=== PATIENT | female | born 1965 | race Two or more races ===

== ENCOUNTER 2019-02-19 18:14 | Inpatient (IN) | payer OTHER, MEDICAID ==
[~2019-02-19] VITALS: Ht 162.6 cm; Wt 106.1 kg
--- NOTE | 2019-02-19 10:30 | NUR ---
MS admit from [facility] A admitted to MS after SBAR received. Patient oriented to ROSA RAMIREZ RN primary RN, unit,286 room, bed B, and unit policies regarding patient care and visiting hours. Patient weighed by bed scale and encouraged to call if they need something. All questions and concerns addressed, patient verbalized understanding. Note: Patient received with increased anxiety. Patient noted with excessive voluntary movements. Resp even and unlabored. Breath sounds clear bilaterally. Non- productive, 02 at 2l/min via N/C. SP02@ 92-93. She denies pain at this time. Will continue to monitor. Bed in low position; Call light in reach. Patient is ambulates to bathroom with a slow steady gait.
[2019-02-19 19:29] LABS: Basophils # (auto) 0.1 uL; Basophils % (auto) 0.7 % (0.0-2.0); Eosinophils # (auto) 0.1 uL; Eosinophils % (auto) 1.4 % (0.0-7.0); Mean Corpuscular Volume 84.3 fL (80.0-100.0); Monocytes # (auto) 0.4 uL; Neutrophils # (auto) 7.2 uL; White Blood Cell 8.9 10^3/uL (4.4-10.8)
[2019-02-19 19:30] LABS: Lymphocytes % (auto) 11.3 % (10.0-50.0); Mean Corpuscular Hemoglobin 27.2 pg (28.0-32.0); Mean Corpuscular Hgb Conc. 32.2 g/dL (32.0-36.0); Neutrophils % (auto) 81.6 % (37.0-80.0); Platelet Count (auto) 445 10^3/uL (140-450); Red Blood Cells 3.68 10^6/uL (4.0-5.20); Red Cell Distribution Width 15.3 % (11.8-14.3)
[2019-02-19] MEDS ORDERED: ASPirin 81 mg TAB PO ONE (19:30)
[2019-02-19 19:42] LABS: Alanine Aminotransferase 21 U/L (13-56); Albumin 3.1 g/dL (3.4-5.0); Anion Gap 9 (5-15); Aspartate Aminotransferase 11 U/L (15-37); BUN/Creatinine Ratio 10.9; Blood Urea Nitrogen 10 mg/dL (7-18); Calcium 8.8 mg/dL (8.5-10.1); Carbon Dioxide 23 mmol/L (21-32); Chloride 109 mmol/L (98-107); GFR African American 82 mL/min; GFR Non-African American 67 mL/min; Glucose 137 mg/dL (74-106); Magnesium 1.7 mg/dL (1.6-2.6); Potassium 3.7 mmol/L (3.5-5.1); Sodium 141 mmol/L (136-145)
[2019-02-19 19:47] LABS: Alkaline Phosphatase 89 U/L (45-117); Bilirubin, Total 0.3 mg/dL (0.2-1.0); Total Protein 7.2 g/dL (6.4-8.2)
[2019-02-19 19:57] LABS: Alcohol, Urine < 3.0 mg/dL (0-5); Amphetamine Screen, Urine NEGATIVE (NEGATIVE); Barbiturate Scree,Urine NEGATIVE (NEGATIVE); Benzodiazephine Screen, Urine NEGATIVE (NEGATIVE); Cannabinoid Screen, Urine NEGATIVE (NEGATIVE); Cocaine Screen, Urine NEGATIVE (NEGATIVE); Opiate Scree,Urine NEGATIVE (NEGATIVE); Phencyclidine Screen, Urine NEGATIVE (NEGATIVE)
[2019-02-19] MEDS ORDERED: cefTRIAXone 1GM/50ML D5W 50 ML IV ONE (20:45)
[2019-02-19] MEDS ORDERED: LORazepam 0.5 MG TAB PO ONE (21:15)
[2019-02-19] MEDS ORDERED: AZITHROMYCIN 500MG/ 250ML 250 ML IV ONE (21:30)
[2019-02-19] MEDS ORDERED: DOCUSATE SOD 100 MG CAP PO PRN (21:30)
[2019-02-19] MEDS ORDERED: DEXTROSE (50%) 50ML SYRG IV PRN (21:30)
[2019-02-19] MEDS ORDERED: ONDANSETRON HCL 4 MG/2 ML VIAL IV PRN (21:30)
[2019-02-19] MEDS ORDERED: ACETAMINOPHEN 500 MG TAB PO PRN (21:30)
[2019-02-19] MEDS ORDERED: TEMAZEPAM 15 MG CAP PO PRN (21:30)
[2019-02-19] MEDS ORDERED: MORPHINE SULF INJ 2 MG/ML SYRINGE 1ML IV PRN (21:30)
[2019-02-19] MEDS: InsuLIN REG 1unit/0.01ml Soln (100units/ml) SC SCH (22:00)
[2019-02-19] MEDS: ACCU-CHEK COMFORT CURVE STRIP VI SCH (22:00)
[2019-02-19] MEDS ORDERED: FUROSEMIDE 20 MG/2 ML VIAL IV ONE (22:45)
--- NOTE | 2019-02-19 23:15 | NUR ---
Zithromax IVPB administered to RFA, 20 gauge. No signs or symptoms of infiltration. Patient complained of intense pain to IV site. New IV site initiated to Left hand with 22 gauge good blood return and flushing well. Patient complained of pain to new IV site. She states, "it feels like a needle is in my arm". Patient informed that the IV was flushing well and was in good condition. Patient then complained of and area to her LFA discoloration and swelling noted to site upon admission to Med/Surg. A cool Ice applied to site. Patient continues to complain of increased anxiety. Medicated with Ativan 0.5 mg IVP.
[2019-02-20] VITALS (7 sets, daily range): BP systolic 137–161; BP diastolic 74–96
[2019-02-20] MEDS: LORazepam 2MG/ML-1ML VIAL IV PRN ×3 (00:01→20:10)
[2019-02-20] MEDS ORDERED: METF-372 PO (02:04)
[2019-02-20] MEDS ORDERED: GLIP10TA9 PO (02:04)
[2019-02-20] MEDS ORDERED: GABA-339 PO (02:04)
[2019-02-20] MEDS ORDERED: INDO75CA3 PO (02:04)
[2019-02-20] MEDS ORDERED: SITA50TA PO (02:04)
[2019-02-20] MEDS ORDERED: PRED-559 PO (02:07)
[2019-02-20] MEDS ORDERED: MONT10TA34 PO (02:07)
[2019-02-20] MEDS ORDERED: PAR20T PO (02:07)
[2019-02-20] MEDS ORDERED: LISI10TA6 PO (02:07)
[2019-02-20] MEDS ORDERED: PRAV20TA3 PO (02:07)
--- NOTE | 2019-02-20 03:40 | NUR ---
Patient complains of chest pressure associated with increase anxiety. Skin warm and dry; color adequate, Resp labored, Spo2 90-91%, Patient noted removing Nasal Canula from her nares repeatedly during the night. Reinforcement provided each time educating patient to keep Oxygen on and to take slow deep breaths. Patient requested something for chest pressure and increased anxiety. B/P-138/91, Pulse -90. EKG performed results: NSR with Sinus arrhythmia with occasional premature Ventricular complexes. Patient medicated as ordered with Morphine 2 mg IVP.
--- NOTE | 2019-02-20 05:00 | NUR ---
Patient resting comfortably no acute distress noted.
[2019-02-20 05:43] LABS: Basophils # (auto) 0 uL; Basophils % (auto) 0.5 % (0.0-2.0); Eosinophils # (auto) 0.1 uL; Eosinophils % (auto) 1.5 % (0.0-7.0); Hematocrit 29.4 % (36.0-46.0); Hemoglobin 9.6 g/dL (12.2-16.2); Lymphocytes # (auto) 1.1 uL; Lymphocytes % (auto) 12.3 % (10.0-50.0); Mean Corpuscular Hemoglobin 27.5 pg (28.0-32.0); Mean Corpuscular Hgb Conc. 32.8 g/dL (32.0-36.0); Monocytes # (auto) 0.5 uL; Monocytes % (auto) 5.9 % (0.0-12.0); Neutrophils # (auto) 6.8 uL; Neutrophils % (auto) 79.8 % (37.0-80.0); Nucleated Red Blood Cells % 0.1 %; Platelet Count (auto) 417 10^3/uL (140-450); Red Cell Distribution Width 15.3 % (11.8-14.3); White Blood Cell 8.6 10^3/uL (4.4-10.8)
[2019-02-20 05:58] LABS: Potassium 3.6 mmol/L (3.5-5.1)
[2019-02-20 06:06] LABS: BUN/Creatinine Ratio 9.6; Calcium 8.8 mg/dL (8.5-10.1)
--- NOTE | 2019-02-20 06:30 | NUR ---
At patient's bedside for AM accu check. Patient states she is feeling much better now, but has a "stomach ache" that just started this morning. Denies nausea and vomiting.
[2019-02-20] MEDS: InsuLIN REG 1unit/0.01ml Soln (100units/ml) SC SCH ×4 (06:33→22:00)
[2019-02-20] MEDS: ACCU-CHEK COMFORT CURVE STRIP VI SCH ×4 (06:34→22:26)
--- NOTE | 2019-02-20 07:50 | NUR ---
Loni, [place], notified of patient's events throughout the night and new onset of stomach pain this AM. No abdominal distention, bowel sounds active x 4 quadrant; no nausea or vomiting. Patient states chest pressure is resolved, but she is now experiencing abdominal discomfort. New orders obtained for: Troponin and upgrade to Telemetry. Patient states she feels the urge to "run".
[2019-02-20] MEDS: cefTRIAXone 1GM/50ML D5W 50 ML IV SCH (08:58)
[2019-02-20] MEDS: PANTOPRAZOLE 40 MG TAB PO SCH (09:09)
[2019-02-20] MEDS: AZITHROMYCIN 500MG/ 250ML 250 ML IV SCH (09:37)
[2019-02-20] MEDS ORDERED: LISINOPRIL 10 MG TAB PO SCH (10:00)
--- NOTE | 2019-02-20 10:17 | NUR ---
Opening Shift Note Assumed care of patient, awake and alert, oriented x 4 and verbally responsive. No S/S of distress/SOB or pain. Instructed on POC and to call for assist PRN, will continue to monitor for changes Q1hr and PRN.
[2019-02-20] MEDS: HYDROcodone-ACET 5/325MG TAB PO PRN ×2 (11:46→18:44)
[2019-02-20] MEDS: ALBUTEROL SULF 2.5 MG/0.5ML(0.5%) NEB SOLN NEB PRN (19:23)
[2019-02-20] MEDS: IPRATROPIUM BROM 0.5 MG/2.5ML INH SOL NEB PRN (19:24)
--- NOTE | 2019-02-20 19:30 | NUR ---
Opening Shift Note Assumed care of patient, awake and alert. Patient complaining about anxiety and asking for ativan. Respiratory therapist on bedside giving breathing treatment. After breathing treatment anti anxiety medication will be administered. Instructed on POC and to call for assist PRN, will continue to monitor for changes Q1hr and PRN.
--- NOTE | 2019-02-20 19:34 | NUR ---
Respiratory note: AT BEDSIDE FOR PRN MED NEB TX ASSESSMENT. PT PRESENTING ANXIETY, RESTLESSNESS, AND INCREASED RR 27BPM. PT STATES SHE HAS A HX OF ANXIETY AND REQUESTED MED NEB TX. MED NEB GIVEN VIA MOUTH PIECE, NO ADVERSE REACTIONS NOTED. PT STILL APPEARED ANXIOUS AFTER TX, RESPIRATORY RATE DECREASED TO 20 BPM, NO RESPIRATORY DISTRESS NOTED. RN NOTIFIED, PT REQUESTING SOMETHING FOR ANXIETY.
[2019-02-21 05:00] VITALS: BP 165/94
[2019-02-21] MEDS: LORazepam 2MG/ML-1ML VIAL IV PRN (05:46)
[2019-02-21] MEDS: ALBUTEROL SULF 2.5 MG/0.5ML(0.5%) NEB SOLN NEB PRN (06:09)
[2019-02-21] MEDS: IPRATROPIUM BROM 0.5 MG/2.5ML INH SOL NEB PRN (06:09)
[2019-02-21] MEDS: ACCU-CHEK COMFORT CURVE STRIP VI SCH ×2 (07:08→11:26)
[2019-02-21] MEDS: InsuLIN REG 1unit/0.01ml Soln (100units/ml) SC SCH ×2 (07:09→11:26)
--- NOTE | 2019-02-21 08:59 | NUR ---
Opening Shift Note Assumed care of patient, awake and alert, oriented x4 and verbally responsive. Respiratory even and unlabored. No S/S of distress/SOB or pain. Skin is warm and dry to touch, no s/s of hyperglycemia or hypoglycemia noted. Instructed on POC and to call for assist PRN, will continue to monitor for changes Q1hr and PRN.
[2019-02-21 09:14] VITALS: BP 146/80
[2019-02-21] MEDS: cefTRIAXone 1GM/50ML D5W 50 ML IV SCH (09:18)
[2019-02-21] MEDS: AZITHROMYCIN 500MG/ 250ML 250 ML IV SCH (09:19)
[2019-02-21] MEDS: PANTOPRAZOLE 40 MG TAB PO SCH (09:19)
[2019-02-21] MEDS ORDERED: LISINOPRIL 20 MG TAB PO SCH (10:00)
[2019-02-21 13:15] VITALS: BP 152/82
[2019-02-21 14:12] VITALS: BP 146/80
--- NOTE | 2019-02-21 14:44 | NUR ---
Discharge instructions given as ordered. Encourage to follow up with PMD (Follow up with Dr. Guerrero #[phone] Address : [address], [address], [place] [address]) as instructed. All questions and concerns addressed. Patient verbalized understanding. Medication reconciliation form completed and copy given to patient. IV removed with catheter intact, pressure dressing applied. Telemetry unit returned to [facility]. Patient taken to vehicle via wheelchair with all personal belongings, accompanied by staff and family member. No distress noted at time of departure.
== END 2019-02-21 14:45 | disposition home or self-care (01) | DRG 291 ==
LOC: EDBD 18:14 → ER 18:14 → OVERFLOW 18:15 → WEST WING 22:12 → TELE-WESTW 02-20 19:10
PROVIDERS: ADMIT Nurse Practitioner Family; ATTEND Nurse Practitioner Family
DX: I11.0 Hypertensive heart disease with heart failure (principal); J18.9 Pneumonia, unspecified organism; Z68.41 Body mass index [BMI] 40.0-44.9, adult; I50.43 Acute on chronic combined systolic (congestive) and diastolic (congestive) heart failure; E78.5 Hyperlipidemia, unspecified; F41.9 Anxiety disorder, unspecified; E11.9 Type 2 diabetes mellitus without complications; D50.9 Iron deficiency anemia, unspecified; E66.9 Obesity, unspecified; J45.909 Unspecified asthma, uncomplicated; Z90.49 Acquired absence of other specified parts of digestive tract; Z79.84 Long term (current) use of oral hypoglycemic drugs; Z79.899 Other long term (current) drug therapy; Z88.2 Allergy status to sulfonamides
CPT/HCPCS: 36415; 71045; 71046; 80048; 80053; 80307; 82962; 83036; 83540; 83550; 83605; 83735; 83880; 84484; 85025; 87040; 87081; 93005; 94640; 96365; G0378; J0696; J1815; J2405

== ENCOUNTER 2019-05-15 09:57 | Emergency (ER) | payer MEDICAID, OTHER ==
[~2019-05-15] VITALS: Ht 165.1 cm; Wt 99.8 kg
[~2019-05-15 09:57] MED LIST: GABA-339 PO; GLIP10TA9 PO; INDO75CA3 PO; LISI10TA6 PO; METF-372 PO; MONT10TA34 PO; PAR20T PO; PRAV20TA3 PO; PRED-559 PO; SITA50TA PO
[2019-05-15 11:55] LABS: Hemoglobin 11.1 g/dL (12.2-16.2); Lymphocytes # (auto) 1.2 uL; Monocytes # (auto) 0.4 uL; Neutrophils # (auto) 5.8 uL
[2019-05-15 12:00] LABS: Basophils # (auto) 0.1 uL; Basophils % (auto) 1.2 % (0.0-2.0); Eosinophils # (auto) 0.1 uL; Eosinophils % (auto) 1.9 % (0.0-7.0); Hematocrit 34.7 % (36.0-46.0); Lymphocytes % (auto) 15.3 % (10.0-50.0); Mean Corpuscular Hemoglobin 26.2 pg (28.0-32.0); Monocytes % (auto) 5.8 % (0.0-12.0); Neutrophils % (auto) 75.8 % (37.0-80.0); Platelet Count (auto) 326 10^3/uL (140-450); Red Blood Cells 4.24 10^6/uL (4.0-5.20); Red Cell Distribution Width 16.2 % (11.8-14.3); White Blood Cell 7.6 10^3/uL (4.4-10.8)
[2019-05-15 12:12] LABS: Alanine Aminotransferase 21 U/L (13-56); Albumin 3.6 g/dL (3.4-5.0); Anion Gap 7 (5-15); Aspartate Aminotransferase 15 U/L (15-37); BUN/Creatinine Ratio 12.4; Blood Urea Nitrogen 14 mg/dL (7-18); Calcium 9.1 mg/dL (8.5-10.1); Carbon Dioxide 26 mmol/L (21-32); Chloride 110 mmol/L (98-107); GFR African American 64 mL/min; GFR Non-African American 53 mL/min; Glucose 96 mg/dL (74-106); Magnesium 1.9 mg/dL (1.6-2.6); Potassium 4.5 mmol/L (3.5-5.1); Sodium 143 mmol/L (136-145)
[2019-05-15 12:17] LABS: Alkaline Phosphatase 95 U/L (45-117); Bilirubin, Total 0.2 mg/dL (0.2-1.0)
[2019-05-15 12:46] VITALS: BP 113/73
== END 2019-05-15 15:06 | disposition home or self-care (01) ==
LOC: ER 10:02
DX: K29.00 Acute gastritis without bleeding (principal); E11.9 Type 2 diabetes mellitus without complications; I10 Essential (primary) hypertension; E78.00 Pure hypercholesterolemia, unspecified; Z90.49 Acquired absence of other specified parts of digestive tract
CPT/HCPCS: 36415; 71046; 80053; 83690; 83735; 84484; 85025; 93005; 94761

== ENCOUNTER 2019-10-05 11:09 | Emergency (ER) | payer BC, OTHER ==
[~2019-10-05] VITALS: Ht 162.6 cm; Wt 127.0 kg
[2019-10-05 11:54] VITALS: BP 114/75
== END 2019-10-05 12:45 | disposition home or self-care (01) ==
LOC: ER 11:11
DX: J06.9 Acute upper respiratory infection, unspecified (principal); J45.909 Unspecified asthma, uncomplicated; E11.9 Type 2 diabetes mellitus without complications; I10 Essential (primary) hypertension; E78.5 Hyperlipidemia, unspecified
CPT/HCPCS: 71046

== ENCOUNTER 2019-11-05 10:49 | Inpatient (IN) | payer BC, OTHER ==
[~2019-11-05] VITALS: Ht 162.6 cm; Wt 94.9 kg
[2019-11-05 11:57] LABS: Basophils # (auto) 0 10 ^3/uL (0-0.2); Basophils % (auto) 0.4 % (0.0-2.0); Eosinophils # (auto) 0.2 10 ^3/uL (0-0.8); Hemoglobin 10.7 g/dL (12.2-16.2); Lymphocytes # (auto) 1.4 10 ^3/uL (0.4-5.4); White Blood Cell 7.3 10^3/uL (4.4-10.8)
[2019-11-05 11:59] LABS: Eosinophils % (auto) 2.6 % (0.0-7.0); Hematocrit 33.7 % (36.0-46.0); Lymphocytes % (auto) 19.3 % (10.0-50.0); Mean Corpuscular Hemoglobin 25.4 pg (28.0-32.0); Mean Corpuscular Hgb Conc. 31.8 g/dL (32.0-36.0); Mean Corpuscular Volume 79.7 fL (80.0-100.0); Monocytes # (auto) 0.5 10 ^3/uL (0-1.3); Monocytes % (auto) 6.3 % (0.0-12.0); Neutrophils # (auto) 5.2 10 ^3/uL (1.6-8.6); Neutrophils % (auto) 71.4 % (37.0-80.0); Nucleated Red Blood Cells % 0.1 %; Platelet Count (auto) 328 10^3/uL (140-450); Red Blood Cells 4.23 10^6/uL (4.0-5.20); Red Cell Distribution Width 16.5 % (11.8-14.3)
[2019-11-05 12:15] LABS: Alanine Aminotransferase 25 U/L (13-56); Albumin 3.2 g/dL (3.4-5.0); Anion Gap 8 (5-15); Aspartate Aminotransferase 21 U/L (15-37); BUN/Creatinine Ratio 13.7; Blood Urea Nitrogen 13 mg/dL (7-18); Calcium 9.1 mg/dL (8.5-10.1); Carbon Dioxide 26 mmol/L (21-32); Chloride 110 mmol/L (98-107); GFR African American 78 mL/min; GFR Non-African American 65 mL/min; Glucose 86 mg/dL (74-106); Potassium 4.1 mmol/L (3.5-5.1); Sodium 144 mmol/L (136-145)
[2019-11-05 12:19] LABS: Alkaline Phosphatase 103 U/L (45-117); Bilirubin, Total 0.2 mg/dL (0.2-1.0); Total Protein 7.5 g/dL (6.4-8.2)
[2019-11-05 13:11] LABS: Urine WBC None Seen /hpf (0 - 5)
[2019-11-05 13:18] LABS: Urine Bacteria NONE SEEN /hpf (None Seen); Urine Blood Negative /uL (Negative); Urine Specific Gravity 1.009 (1.001-1.035)
[2019-11-05] MEDS ORDERED: IOHEXOL 350 MG/ML 100ML IJ ONE (13:33)
[2019-11-05] MEDS ORDERED: TEMAZEPAM 15 MG CAP PO PRN (16:00)
[2019-11-05] MEDS ORDERED: DEXTROSE (50%) 50ML SYRG IV PRN (16:00)
[2019-11-05] MEDS ORDERED: MORPHINE SULF INJ 2 MG/ML SYRINGE 1ML IV PRN (16:00)
[2019-11-05] MEDS ORDERED: PROMETHAZINE HCL 25 MG/ML 1ML IV PRN (16:00)
[2019-11-05] MEDS ORDERED: NITROGLYCERIN 0.4 MG SL TAB SL PRN (16:00)
[2019-11-05] MEDS ORDERED: LACTULOSE 20Gm/30ML SOLN PO PRN (16:00)
[2019-11-05] MEDS ORDERED: ALBUTEROL SULF 2.5 MG/0.5ML(0.5%) NEB SOLN NEB PRN (16:00)
[2019-11-05 16:09] VITALS: BP 150/79
[2019-11-05 16:26] LABS: Alcohol, Urine < 3.0 mg/dL (0-5); Amphetamine Screen, Urine NEGATIVE (NEGATIVE); Barbiturate Scree,Urine NEGATIVE (NEGATIVE); Benzodiazephine Screen, Urine NEGATIVE (NEGATIVE); Cannabinoid Screen, Urine NEGATIVE (NEGATIVE); Cocaine Screen, Urine NEGATIVE (NEGATIVE); Opiate Scree,Urine NEGATIVE (NEGATIVE); Phencyclidine Screen, Urine NEGATIVE (NEGATIVE)
[2019-11-05] MEDS: InsuLIN REG 1unit/0.01ml Soln (100units/ml) SC SCH ×2 (17:00→22:00)
[2019-11-05] MEDS: SODIUM CHLORIDE 0.9% 1,000 ML IV SCH (17:13)
[2019-11-05 17:40] VITALS: BP 143/83
[2019-11-05] MEDS ORDERED: ALBUTEROL SULF 2.5 MG/0.5ML(0.5%) NEB SOLN NEB SCH (18:00)
[2019-11-05] MEDS ORDERED: IPRATROPIUM BROM 0.5 MG/2.5ML INH SOL NEB SCH (18:00)
[2019-11-05] MEDS: ACCU-CHEK COMFORT CURVE STRIP VI SCH ×2 (18:21→22:16)
[2019-11-05] MEDS: traMADol HCL 50 MG TAB PO PRN (20:20)
[2019-11-05] MEDS ORDERED: LORA0.5T12 PO (21:21)
[2019-11-05] MEDS ORDERED: DICY20TA10 PO (21:21)
[2019-11-05] MEDS ORDERED: OMEGCAP2 OR (21:21)
[2019-11-05] MEDS ORDERED: OMEP20TA PO (21:21)
[2019-11-05] MEDS ORDERED: MELO1TAB56 PO (21:21)
[2019-11-05] MEDS ORDERED: MECL25TA18 PO (21:21)
[2019-11-05] MEDS ORDERED: BECL80AE11 IN (21:21)
[2019-11-05] MEDS ORDERED: BIOT50006 PO (21:21)
[2019-11-05] MEDS ORDERED: FAM20T PO (21:21)
[2019-11-05] MEDS ORDERED: ALOG1TAB2 PO (21:21)
[2019-11-05] MEDS ORDERED: ALBUAER3 IN (21:21)
[2019-11-05] MEDS ORDERED: TIZA4CAP PO (21:21)
[2019-11-05 21:48] LABS: CRP High Sensitivity 0.63 mg/dL (< 0.3)
[2019-11-05 22:00] VITALS: BP 149/86
[2019-11-05] MEDS: ATORVASTATIN 20 MG TAB PO SCH (22:14)
[2019-11-05] MEDS: METOPROLOL TARTRATE 25 MG TAB PO SCH (22:15)
[2019-11-05] MEDS: ALBUTEROL SULF HFA 90MCG INH 200DOSE IN SCH (22:32)
[2019-11-06] VITALS (7 sets, daily range): BP systolic 127–144; BP diastolic 69–85
[2019-11-06] MEDS: traMADol HCL 50 MG TAB PO PRN (04:01)
[2019-11-06] MEDS: ALBUTEROL SULF HFA 90MCG INH 200DOSE IN SCH ×3 (05:52→21:45)
[2019-11-06] MEDS: SODIUM CHLORIDE 0.9% 1,000 ML IV SCH (05:52)
[2019-11-06] MEDS: ACCU-CHEK COMFORT CURVE STRIP VI SCH ×4 (05:53→21:47)
[2019-11-06] MEDS: InsuLIN REG 1unit/0.01ml Soln (100units/ml) SC SCH ×4 (05:53→21:47)
[2019-11-06] MEDS: ENOXAPARIN SOD 40 MG/0.4 ML SYRINGE SC SCH (09:27)
[2019-11-06] MEDS: NITROGLYCERIN 0.2MG/HR TOPICAL PATCH TD SCH (09:30)
[2019-11-06] MEDS: METOPROLOL TARTRATE 25 MG TAB PO SCH ×2 (09:30→21:46)
[2019-11-06] MEDS: ASPirin 81 mg TAB PO SCH (09:30)
[2019-11-06 11:43] LABS: Cholesterol 154 mg/dL (< 200)
[2019-11-06 11:46] LABS: HDL Cholesterol 64 mg/dL (40-59); LDL Cholesterol 76 mg/dL (< 100); Triglycerides 81 mg/dL (< 150)
[2019-11-06] MEDS: ATORVASTATIN 20 MG TAB PO SCH (21:46)
[2019-11-07 02:00] VITALS: BP 133/85
[2019-11-07] MEDS: ACCU-CHEK COMFORT CURVE STRIP VI SCH ×4 (06:02→22:11)
[2019-11-07] MEDS: ALBUTEROL SULF HFA 90MCG INH 200DOSE IN SCH ×3 (06:02→22:11)
[2019-11-07] MEDS: InsuLIN REG 1unit/0.01ml Soln (100units/ml) SC SCH ×4 (06:02→22:00)
[2019-11-07] MEDS: ACETAMINOPHEN 500 MG TAB PO PRN (06:08)
[2019-11-07 08:00] VITALS: BP 148/91
[2019-11-07] MEDS: ENOXAPARIN SOD 40 MG/0.4 ML SYRINGE SC SCH (09:41)
[2019-11-07] MEDS: ASPirin 81 mg TAB PO SCH (09:41)
[2019-11-07] MEDS: METOPROLOL TARTRATE 25 MG TAB PO SCH ×2 (09:41→22:00)
[2019-11-07] MEDS: NITROGLYCERIN 0.2MG/HR TOPICAL PATCH TD SCH (09:42)
[2019-11-07 12:00] VITALS: BP 140/94
[2019-11-07] MEDS: traMADol HCL 50 MG TAB PO PRN (12:18)
[2019-11-07 17:00] VITALS: BP 124/75
[2019-11-07 20:00] VITALS: BP 126/81
[2019-11-07 22:00] VITALS: BP 126/81
[2019-11-07] MEDS: ATORVASTATIN 20 MG TAB PO SCH (22:08)
[2019-11-08] VITALS (8 sets, daily range): BP systolic 123–139; BP diastolic 79–91
[2019-11-08] MEDS: InsuLIN REG 1unit/0.01ml Soln (100units/ml) SC SCH ×4 (06:25→22:00)
[2019-11-08] MEDS: ALBUTEROL SULF HFA 90MCG INH 200DOSE IN SCH ×3 (06:25→22:00)
[2019-11-08] MEDS: ACCU-CHEK COMFORT CURVE STRIP VI SCH ×4 (06:26→23:00)
[2019-11-08] MEDS ORDERED: ADENOSINE 79 MG in GIVE UN-DILUTED 0 ML IV STA (08:15)
[2019-11-08] MEDS ORDERED: OPTISON 3ml Vial for INJ IV ONE (11:20)
[2019-11-08] MEDS: ASPirin 81 mg TAB PO SCH (12:03)
[2019-11-08] MEDS: METOPROLOL TARTRATE 25 MG TAB PO SCH ×2 (12:03→22:51)
[2019-11-08] MEDS: NITROGLYCERIN 0.2MG/HR TOPICAL PATCH TD SCH (12:04)
[2019-11-08] MEDS: ENOXAPARIN SOD 40 MG/0.4 ML SYRINGE SC SCH (12:04)
[2019-11-08] MEDS: ACETAMINOPHEN 500 MG TAB PO PRN ×2 (17:21→23:31)
[2019-11-08] MEDS: ATORVASTATIN 20 MG TAB PO SCH (22:52)
[2019-11-09] MEDS: ALPRAZolam 0.25 MG TAB PO PRN ×2 (01:48→22:30)
[2019-11-09 05:00] VITALS: BP 127/69
[2019-11-09 06:40] LABS: Basophils # (auto) 0 10 ^3/uL (0-0.2); Eosinophils # (auto) 0.2 10 ^3/uL (0-0.8); Lymphocytes # (auto) 1.1 10 ^3/uL (0.4-5.4); Lymphocytes % (auto) 19.3 % (10.0-50.0); Mean Corpuscular Hemoglobin 25.1 pg (28.0-32.0); Neutrophils # (auto) 4.1 10 ^3/uL (1.6-8.6); Nucleated Red Blood Cells % 0.1 %; Platelet Count (auto) 338 10^3/uL (140-450); White Blood Cell 5.8 10^3/uL (4.4-10.8)
[2019-11-09 06:43] LABS: Basophils % (auto) 0.7 % (0.0-2.0); Eosinophils % (auto) 3.8 % (0.0-7.0); Hematocrit 34.5 % (36.0-46.0); Mean Corpuscular Volume 78.6 fL (80.0-100.0); Monocytes # (auto) 0.3 10 ^3/uL (0-1.3); Monocytes % (auto) 5.7 % (0.0-12.0); Neutrophils % (auto) 70.5 % (37.0-80.0); Red Cell Distribution Width 16.1 % (11.8-14.3)
[2019-11-09] MEDS: InsuLIN REG 1unit/0.01ml Soln (100units/ml) SC SCH ×4 (06:52→22:32)
[2019-11-09] MEDS: ACCU-CHEK COMFORT CURVE STRIP VI SCH ×4 (06:52→22:31)
[2019-11-09 07:02] LABS: Albumin 3.5 g/dL (3.4-5.0); Calcium 9.2 mg/dL (8.5-10.1); Potassium 3.8 mmol/L (3.5-5.1)
[2019-11-09] MEDS: ALBUTEROL SULF HFA 90MCG INH 200DOSE IN SCH ×3 (07:02→22:00)
[2019-11-09 07:03] LABS: BUN/Creatinine Ratio 14.7; INR 1.02 (0.9-1.15); Partial Thromboplastin Time 25.6 sec (23.64-32.05)
[2019-11-09 07:14] LABS: Bilirubin, Total 0.3 mg/dL (0.2-1.0)
[2019-11-09 08:59] VITALS: BP 142/82
[2019-11-09] MEDS: ENOXAPARIN SOD 40 MG/0.4 ML SYRINGE SC SCH (10:00)
[2019-11-09] MEDS: ASPirin 81 mg TAB PO SCH (10:05)
[2019-11-09] MEDS: METOPROLOL TARTRATE 25 MG TAB PO SCH ×2 (10:05→22:23)
[2019-11-09] MEDS: NITROGLYCERIN 0.2MG/HR TOPICAL PATCH TD SCH (10:05)
[2019-11-09 13:00] VITALS: BP 132/79
[2019-11-09] MEDS ORDERED: IOHEXOL 350 MG/ML 100ML IJ ONE (13:24)
[2019-11-09] MEDS ORDERED: LIDOCAINE 2%HCL (LOCAL ANESTH.) INJ 20ML MDV ONE (13:24)
[2019-11-09] MEDS ORDERED: fentaNYL CITRATE 100 MCG/2 ML VL ONE (13:33)
[2019-11-09] MEDS ORDERED: MIDAZOLAM HCL 1MG/1ML-2 ML VIAL ONE (13:34)
[2019-11-09] MEDS: ACETAMINOPHEN 500 MG TAB PO PRN ×2 (14:29→22:24)
[2019-11-09 17:00] VITALS: BP 123/78
[2019-11-09 22:00] VITALS: BP 114/74
[2019-11-09] MEDS ORDERED: GABAPENTIN 100 MG CAP PO ONE (22:15)
[2019-11-09] MEDS: ATORVASTATIN 20 MG TAB PO SCH (22:19)
[2019-11-10 05:00] VITALS: BP 117/66
[2019-11-10] MEDS: GABAPENTIN 100 MG CAP PO SCH ×2 (05:38→13:28)
[2019-11-10] MEDS: ACCU-CHEK COMFORT CURVE STRIP VI SCH ×2 (05:39→11:30)
[2019-11-10] MEDS: InsuLIN REG 1unit/0.01ml Soln (100units/ml) SC SCH ×2 (05:43→11:30)
[2019-11-10] MEDS: ALBUTEROL SULF HFA 90MCG INH 200DOSE IN SCH ×2 (06:00→14:29)
[2019-11-10] MEDS: ENOXAPARIN SOD 40 MG/0.4 ML SYRINGE SC SCH (08:55)
[2019-11-10] MEDS: NITROGLYCERIN 0.2MG/HR TOPICAL PATCH TD SCH (08:56)
[2019-11-10] MEDS: METOPROLOL TARTRATE 25 MG TAB PO SCH (08:56)
[2019-11-10] MEDS: ASPirin 81 mg TAB PO SCH (08:57)
[2019-11-10] MEDS: ACETAMINOPHEN 500 MG TAB PO PRN (08:57)
[2019-11-10 09:00] VITALS: BP 115/71
[2019-11-10 13:00] VITALS: BP 111/66
[2019-11-10 13:47] VITALS: BP 111/66
== END 2019-11-10 15:10 | disposition home or self-care (01) | DRG 195 ==
LOC: ER 10:49 → TELE 10:50 → TELE-EAST 17:49 → TELE-CENTR 11-07 17:47
PROVIDERS: ADMIT Internal Medicine; ATTEND Internal Medicine
PROC: 4A023N7 Measurement of Cardiac Sampling and Pressure, Left Heart, Percutaneous Approach (ICD-10-PCS; principal; 2019-11-09)
PROC: B2151ZZ Fluoroscopy of Left Heart using Low Osmolar Contrast (ICD-10-PCS; 2019-11-09)
PROC: B2111ZZ Fluoroscopy of Multiple Coronary Arteries using Low Osmolar Contrast (ICD-10-PCS; 2019-11-09)
DX: R09.1 Pleurisy (principal); D64.9 Anemia, unspecified; J45.909 Unspecified asthma, uncomplicated; F41.9 Anxiety disorder, unspecified; E11.9 Type 2 diabetes mellitus without complications; E66.01 Morbid (severe) obesity due to excess calories; I10 Essential (primary) hypertension; F32.9 Major depressive disorder, single episode, unspecified; E78.5 Hyperlipidemia, unspecified; Z98.84 Bariatric surgery status; Z68.37 Body mass index [BMI] 37.0-37.9, adult; Z03.818 Encounter for observation for suspected exposure to other biological agents ruled out; Z90.49 Acquired absence of other specified parts of digestive tract; Z88.8 Allergy status to other drugs, medicaments and biological substances
CPT/HCPCS: 36415; 71045; 71275; 78452; 80053; 80061; 80307; 81001; 82550; 82728; 82962; 83036; 83880; 84484; 85025; 85379; 85610; 85652; 85730; 86141; 86850; 86900; 86901; 87070; 87635; 87804; 87880; 93005; 93017; 93306; 93458; 94640; 99152; G0378; J0153; J1815; J2250; Q9956

== ENCOUNTER 2020-05-10 16:08 | Emergency (ER) | payer OTHER, MEDICAID ==
[~2020-05-10] VITALS: Ht 162.6 cm; Wt 95.3 kg
[~2020-05-10 16:08] MED LIST changes: +ALBUAER3 IN; +ALOG1TAB2 PO; +BECL80AE11 IN; +BIOT50006 PO; +DICY20TA10 PO; +FAMO20TA10 PO; -INDO75CA3 PO; +LISI-648 PO; -LISI10TA6 PO; +LORA0.5T20 PO; +MECL25TA18 PO; +MELO1TAB56 PO; +OMEGCAP2 OR; +OMEP20TA PO; -PAR20T PO; -PRED-559 PO; -SITA50TA PO; +TIZA4CAP PO
[2020-05-10 19:32] VITALS: BP 146/88
== END 2020-05-10 21:26 | disposition home or self-care (01) ==
LOC: ER 16:08
DX: S93.402A Sprain of unspecified ligament of left ankle, initial encounter (principal); S93.401A Sprain of unspecified ligament of right ankle, initial encounter; M54.5 Low back pain; E11.9 Type 2 diabetes mellitus without complications; E78.5 Hyperlipidemia, unspecified; Z90.49 Acquired absence of other specified parts of digestive tract; W10.9XXA Fall (on) (from) unspecified stairs and steps, initial encounter; Y93.89 Activity, other specified; Y92.89 Other specified places as the place of occurrence of the external cause; Y99.8 Other external cause status; Z88.1 Allergy status to other antibiotic agents; Z88.8 Allergy status to other drugs, medicaments and biological substances; Z79.899 Other long term (current) drug therapy
CPT/HCPCS: 72220; 73610

== ENCOUNTER 2020-12-16 16:20 | Emergency (ER) | payer BC, MEDICAID ==
[~2020-12-16] VITALS: Ht 165.1 cm; Wt 99.8 kg
[~2020-12-16 16:20] MED LIST changes: -LISI-648 PO; +LISI-716 PO; -MONT10TA34 PO; +MONT10TA42 PO
[2020-12-16 17:47] LABS: Urine Bacteria NONE SEEN /hpf (None Seen); Urine Blood Negative /uL (Negative); Urine Hyaline Cast FEW /lpf (0 - 2); Urine Mucus FEW (None Seen); Urine Specific Gravity 1.028 (1.001-1.035); Urine WBC 1 /hpf (0 - 5)
[2020-12-16 18:01] LABS: Basophils # (auto) 0 10 ^3/uL (0-0.2); Basophils % (auto) 0.5 % (0.0-2.0); Eosinophils # (auto) 0.2 10 ^3/uL (0-0.8); Eosinophils % (auto) 2.8 % (0.0-7.0); Hematocrit 38.4 % (36.0-46.0); Hemoglobin 13.3 g/dL (12.2-16.2); Lymphocytes # (auto) 1.3 10 ^3/uL (0.4-5.4); Lymphocytes % (auto) 22.1 % (10.0-50.0); Mean Corpuscular Hemoglobin 30.8 pg (28.0-32.0); Mean Corpuscular Hgb Conc. 34.7 g/dL (32.0-36.0); Mean Corpuscular Volume 88.7 fL (80.0-100.0); Monocytes # (auto) 0.5 10 ^3/uL (0-1.3); Monocytes % (auto) 8.4 % (0.0-12.0); Neutrophils # (auto) 3.8 10 ^3/uL (1.6-8.6); Neutrophils % (auto) 66.2 % (37.0-80.0); Nucleated Red Blood Cells % 0.2 %; Platelet Count (auto) 323 10^3/uL (140-450); Red Blood Cells 4.33 10^6/uL (4.0-5.20); Red Cell Distribution Width 13.7 % (11.8-14.3); White Blood Cell 5.8 10^3/uL (4.4-10.8)
[2020-12-16 18:13] LABS: Albumin 3.6 g/dL (3.4-5.0); Amylase 67 U/L (25-115); Calcium 8.9 mg/dL (8.5-10.1); Lipase 128 U/L (73-393); Potassium 4.6 mmol/L (3.5-5.1)
[2020-12-16 18:17] LABS: BUN/Creatinine Ratio 16.8; Bilirubin, Total 0.2 mg/dL (0.2-1.0)
[2020-12-17 00:55] VITALS: BP 115/76
== END 2020-12-17 00:56 | disposition home or self-care (01) ==
LOC: ER 16:20
DX: S80.02XA Contusion of left knee, initial encounter (principal); B81.8 Other specified intestinal helminthiases; F41.9 Anxiety disorder, unspecified; J45.909 Unspecified asthma, uncomplicated; F32.9 Major depressive disorder, single episode, unspecified; E11.9 Type 2 diabetes mellitus without complications; E78.5 Hyperlipidemia, unspecified; I10 Essential (primary) hypertension; Z88.1 Allergy status to other antibiotic agents; Z88.2 Allergy status to sulfonamides; Z79.899 Other long term (current) drug therapy; Z79.84 Long term (current) use of oral hypoglycemic drugs; Z90.89 Acquired absence of other organs; Z98.890 Other specified postprocedural states; X58.XXXA Exposure to other specified factors, initial encounter; Y93.89 Activity, other specified; Y92.89 Other specified places as the place of occurrence of the external cause; Y99.8 Other external cause status
CPT/HCPCS: 36415; 73562; 80053; 81001; 81025; 82150; 83690; 85025

== ENCOUNTER 2021-06-03 10:10 | Emergency (ER) | payer BC, MEDICAID ==
[~2021-06-03] VITALS: Ht 165.1 cm; Wt 95.3 kg
[~2021-06-03 10:10] MED LIST changes: -DICY20TA10 PO; +DICY20TA2 PO; +MONT-8 PO; -MONT10TA42 PO
[2021-06-03] MEDS ORDERED: PANTOPRAZOLE 40 MG/10 ML VIAL INJ IV ONE (10:30)
[2021-06-03] MEDS ORDERED: SODIUM CHLORIDE 0.9% 500 ML IVB ONE (10:30)
[2021-06-03] MEDS ORDERED: MORPHINE SULFATE 4 MG/ML SYR/VIAL IV ONE (10:30)
[2021-06-03] MEDS ORDERED: ONDANSETRON HCL 4 MG/2 ML VIAL IV ONE (10:30)
[2021-06-03 11:38] LABS: Urine Bacteria NONE SEEN /hpf (None Seen); Urine Blood Negative /uL (Negative); Urine Mucus FEW (None Seen); Urine Specific Gravity 1.007 (1.001-1.035); Urine WBC <1 /hpf (0 - 5)
[2021-06-03 11:43] LABS: Basophils # (auto) 0 10 ^3/uL (0-0.2); Basophils % (auto) 0.6 % (0.0-2.0); Eosinophils # (auto) 0.2 10 ^3/uL (0-0.8); Eosinophils % (auto) 3.1 % (0.0-7.0); Hematocrit 37.9 % (36.0-46.0); Hemoglobin 12.5 g/dL (12.2-16.2); Lymphocytes # (auto) 1.3 10 ^3/uL (0.4-5.4); Lymphocytes % (auto) 19.5 % (10.0-50.0); Mean Corpuscular Hemoglobin 28.9 pg (28.0-32.0); Mean Corpuscular Hgb Conc. 32.9 g/dL (32.0-36.0); Mean Corpuscular Volume 87.9 fL (80.0-100.0); Monocytes # (auto) 0.3 10 ^3/uL (0-1.3); Monocytes % (auto) 4.6 % (0.0-12.0); Neutrophils # (auto) 4.7 10 ^3/uL (1.6-8.6); Neutrophils % (auto) 72.2 % (37.0-80.0); Nucleated Red Blood Cells % 0.1 %; Red Blood Cells 4.32 10^6/uL (4.0-5.20); Red Cell Distribution Width 14.5 % (11.8-14.3); White Blood Cell 6.5 10^3/uL (4.4-10.8)
[2021-06-03 12:04] LABS: Potassium 4.2 mmol/L (3.5-5.1)
[2021-06-03 12:12] LABS: Albumin 3.1 g/dL (3.4-5.0); Bilirubin, Total 0.2 mg/dL (0.2-1.0); Calcium 8.8 mg/dL (8.5-10.1); Total Protein 7.1 g/dL (6.4-8.2)
[2021-06-03 12:26] VITALS: BP 130/77
== END 2021-06-03 12:35 | disposition home or self-care (01) ==
LOC: ER 10:10
DX: K82.4 Cholesterolosis of gallbladder (principal); J45.909 Unspecified asthma, uncomplicated; E11.9 Type 2 diabetes mellitus without complications; E78.5 Hyperlipidemia, unspecified; I10 Essential (primary) hypertension; Z98.51 Tubal ligation status; Z88.1 Allergy status to other antibiotic agents; Z88.2 Allergy status to sulfonamides
CPT/HCPCS: 36415; 76705; 80053; 81001; 82150; 83690; 85025

== ENCOUNTER 2022-03-29 19:27 | Emergency (ER) | payer BC, MEDICAID ==
[~2022-03-29] VITALS: Ht 157.5 cm; Wt 90.0 kg
[2022-03-29 20:11] VITALS: BP 156/90
== END 2022-03-30 01:39 | disposition left against medical advice (07) ==
LOC: EDUNIT# 19:27 → EDBD 19:27 → ER 19:27
DX: R42 Dizziness and giddiness (principal); Z53.21 Procedure and treatment not carried out due to patient leaving prior to being seen by health care provider
CPT/HCPCS: 93005

== ENCOUNTER 2022-11-09 12:27 | Emergency (ER) | payer BC, MEDICAID ==
[~2022-11-09] VITALS: Ht 157.5 cm; Wt 94.7 kg
[2022-11-09] MEDS ORDERED: DONNATAL 5ml ORAL Elix (BELLADONNA ALK-PHENOBARB) PO ONE (12:30)
[2022-11-09] MEDS ORDERED: MAALOX PLUS or MAALOX 30 ML PO ONE (12:30)
[2022-11-09] MEDS ORDERED: LIDOCAINE VISCOUS 2% 15ML UD PO ONE (12:30)
[2022-11-09 12:55] LABS: Basophils # (auto) 0 10 ^3/uL (0-0.2); Basophils % (auto) 0.5 % (0.0-2.0); Eosinophils # (auto) 0.1 10 ^3/uL (0-0.8); Eosinophils % (auto) 1.6 % (0.0-7.0); Hematocrit 35.6 % (36.0-46.0); Hemoglobin 11.6 g/dL (12.2-16.2); Lymphocytes # (auto) 1.6 10 ^3/uL (0.4-5.4); Lymphocytes % (auto) 20.1 % (10.0-50.0); Mean Corpuscular Hemoglobin 27.1 pg (28.0-32.0); Mean Corpuscular Hgb Conc. 32.6 g/dL (32.0-36.0); Mean Corpuscular Volume 83.1 fL (80.0-100.0); Monocytes # (auto) 0.4 10 ^3/uL (0-1.3); Monocytes % (auto) 5.4 % (0.0-12.0); Neutrophils # (auto) 5.7 10 ^3/uL (1.6-8.6); Neutrophils % (auto) 72.4 % (37.0-80.0); Red Blood Cells 4.28 10^6/uL (4.0-5.20); White Blood Cell 7.9 10^3/uL (4.4-10.8)
[2022-11-09 12:59] LABS: Urine Bacteria NONE SEEN /hpf (None Seen); Urine Blood Negative /uL (Negative); Urine Specific Gravity 1.012 (1.001-1.035); Urine WBC <1 /hpf (0 - 5)
[2022-11-09 13:15] LABS: Albumin 3.5 g/dL (3.4-5.0); Calcium 9.4 mg/dL (8.5-10.1)
[2022-11-09 13:18] LABS: BUN/Creatinine Ratio 17.9 (10.0-20.0); Bilirubin, Total 0.2 mg/dL (0.2-1.0)
[2022-11-09] MEDS ORDERED: PANT40TA2 PO (14:56)
[2022-11-09 15:03] VITALS: BP 129/54
== END 2022-11-09 15:05 | disposition home or self-care (01) ==
LOC: ER 12:27
DX: K29.70 Gastritis, unspecified, without bleeding (principal); E11.9 Type 2 diabetes mellitus without complications; E78.5 Hyperlipidemia, unspecified; I10 Essential (primary) hypertension; Z98.51 Tubal ligation status; Z88.1 Allergy status to other antibiotic agents
CPT/HCPCS: 36415; 74176; 80053; 81001; 84484; 85025; 93005

== ENCOUNTER 2022-12-13 14:56 | Emergency (ER) | payer BC, MEDICAID ==
[~2022-12-13] VITALS: Ht 162.6 cm; Wt 95.7 kg
[~2022-12-13 14:56] MED LIST changes: -LISI-716 PO; +LISI10TA34 PO; +LORA-1121 PO; -LORA0.5T20 PO; +MECL1TAB32 PO; -MECL25TA18 PO; +MELO-335 PO; -MELO1TAB56 PO; +PANT40TA2 PO
[2022-12-13 16:06] VITALS: BP 181/96
[2022-12-13] MEDS ORDERED: DexAMETHasone SOD PHOS 10MG/1ML VIAL INJ IM ONE (17:00)
[2022-12-13] MEDS ORDERED: BENZ100C97 PO (20:28)
== END 2022-12-13 21:29 | disposition home or self-care (01) ==
LOC: ER 14:56
DX: J06.9 Acute upper respiratory infection, unspecified (principal); F41.9 Anxiety disorder, unspecified; J45.909 Unspecified asthma, uncomplicated; F32.9 Major depressive disorder, single episode, unspecified; E11.9 Type 2 diabetes mellitus without complications; E78.5 Hyperlipidemia, unspecified; I10 Essential (primary) hypertension; E66.01 Morbid (severe) obesity due to excess calories; Z90.89 Acquired absence of other organs; Z98.51 Tubal ligation status; Z68.36 Body mass index [BMI] 36.0-36.9, adult
CPT/HCPCS: 71046; 96372; 99283; J1100

== ENCOUNTER 2023-03-23 13:26 | Emergency (ER) | payer BC, MEDICAID ==
[~2023-03-23] VITALS: Ht 162.6 cm; Wt 94.4 kg
[~2023-03-23 13:26] MED LIST changes: +BENZ100C97 PO
[2023-03-23 14:04] VITALS: BP 131/76; PULSE 73; TEMP 96.9
[2023-03-23] MEDS ORDERED: ALBUTEROL SULF 2.5 MG/0.5ML(0.5%) NEB SOLN NEB ONE ×3 (15:15→17:00)
[2023-03-23] MEDS ORDERED: IPRATROPIUM BROM 0.5 MG/2.5ML INH SOL NEB ONE ×3 (15:15→17:00)
[2023-03-23] MEDS ORDERED: DexAMETHasone SOD PHOS 10MG/1ML VIAL INJ PO ONE (17:00)
[2023-03-23 17:02] VITALS: RESP 18; O2SAT 95
[2023-03-23] MEDS ORDERED: METH4PAK PO (17:41)
== END 2023-03-23 17:41 ==
LOC: ER 13:26
DX: J45.901 Unspecified asthma with (acute) exacerbation (principal); I10 Essential (primary) hypertension; E11.9 Type 2 diabetes mellitus without complications; E78.5 Hyperlipidemia, unspecified; Z90.49 Acquired absence of other specified parts of digestive tract
CPT/HCPCS: 71045; 94640; 99285; J1100; J7644

== ENCOUNTER 2023-04-06 09:56 | Emergency (ER) | payer BC, MEDICAID ==
[~2023-04-06] VITALS: Ht 162.6 cm; Wt 93.3 kg
[~2023-04-06 09:56] MED LIST changes: +METH4PAK PO
[2023-04-06 10:30] VITALS: BP 130/79; PULSE 81; RESP 16; TEMP 97.7; O2SAT 98
[2023-04-06] MEDS ORDERED: NAPR-746 PO (10:43)
[2023-04-06] MEDS ORDERED: CEPH500C PO (10:43)
[2023-04-06] MEDS ORDERED: cefTRIAXone SOD 1,000 MG VL IM ONE (10:45)
== END 2023-04-06 11:04 | disposition home or self-care (01) ==
LOC: ER 09:56
DX: R23.8 Other skin changes (principal); L08.9 Local infection of the skin and subcutaneous tissue, unspecified; I10 Essential (primary) hypertension; E11.9 Type 2 diabetes mellitus without complications; E78.5 Hyperlipidemia, unspecified; J45.909 Unspecified asthma, uncomplicated; Z90.49 Acquired absence of other specified parts of digestive tract; Z79.899 Other long term (current) drug therapy; Z88.1 Allergy status to other antibiotic agents; Z88.2 Allergy status to sulfonamides; Z88.8 Allergy status to other drugs, medicaments and biological substances
CPT/HCPCS: 96372; 99283; J0696

== ENCOUNTER 2023-12-06 14:01 | Inpatient (IN) | payer BC, MEDICAID ==
[~2023-12-06] VITALS: Ht 162.6 cm; Wt 97.5 kg
[~2023-12-06 14:01] MED LIST changes: +CEPH500C PO; +MECL-90 PO; -MECL1TAB32 PO; -MELO-335 PO; +MELO15TA29 PO; +NAPR-746 PO
[2023-12-06 14:18] LABS: Basophils # (auto) 0 10 ^3/uL (0-0.2); Basophils % (auto) 0.4 % (0.0-2.0); Eosinophils # (auto) 0.6 10 ^3/uL (0-0.8); Eosinophils % (auto) 5.4 % (0.0-7.0); Hematocrit 35.4 % (36.0-46.0); Hemoglobin 11.5 g/dL (12.2-16.2); Lymphocytes # (auto) 2.2 10 ^3/uL (0.4-5.4); Lymphocytes % (auto) 20.1 % (10.0-50.0); Mean Corpuscular Hemoglobin 27.5 pg (28.0-32.0); Mean Corpuscular Hgb Conc. 32.5 g/dL (32.0-36.0); Mean Corpuscular Volume 84.5 fL (80.0-100.0); Monocytes # (auto) 0.6 10 ^3/uL (0-1.3); Monocytes % (auto) 5.8 % (0.0-12.0); Neutrophils # (auto) 7.4 10 ^3/uL (1.6-8.6); Neutrophils % (auto) 68.3 % (37.0-80.0); Nucleated Red Blood Cells % 0.1 %; Red Blood Cells 4.19 10^6/uL (4.0-5.20); Red Cell Distribution Width 15.4 % (11.8-14.3); White Blood Cell 10.9 10^3/uL (4.4-10.8)
[2023-12-06 14:28] LABS: Chloride 108 mmol/L (98-107); Potassium 4.4 mmol/L (3.5-5.1); Sodium 141 mmol/L (136-145)
[2023-12-06 14:29] LABS: Anion Gap 4 (5-15); Carbon Dioxide 29 mmol/L (20-30)
[2023-12-06 14:30] LABS: Calcium 9.9 mg/dL (8.5-10.1)
[2023-12-06 14:34] LABS: Glucose 148 mg/dL (74-106)
[2023-12-06 14:35] LABS: BUN/Creatinine Ratio 15.6 (10.0-20.0); Blood Urea Nitrogen 19 mg/dL (9-23)
[2023-12-06] MEDS: IPRATROPIUM BROM 0.5 MG/2.5ML INH SOL NEB ONE (15:22)
[2023-12-06] MEDS: ALBUTEROL SULF 2.5 MG/0.5ML(0.5%) NEB SOLN NEB ONE (15:23)
[2023-12-06] MEDS: methylPREDNISolone SOD SUCC 125 MG/2 ML VL IV ONE (16:30)
[2023-12-06] MEDS: MAGNESIUM SULFATE 1GM/100ML 100 ML IV ONE (16:30)
[2023-12-06 16:38] VITALS: PULSE 79; RESP 19; O2SAT 97
[2023-12-06 18:00] VITALS: PULSE 74; RESP 18; O2SAT 95
[2023-12-06] MEDS ORDERED: ALBUTEROL SULF 2.5 MG/0.5ML(0.5%) NEB SOLN NEB PRN (18:45)
[2023-12-06] MEDS ORDERED: DEXTROSE (50%) 50ML SYRG IV PRN (18:45)
[2023-12-06 19:02] LABS: Triglycerides 161 mg/dL (< 150)
[2023-12-06 19:03] LABS: LDL Cholesterol 114 mg/dL (< 100)
[2023-12-06 19:04] LABS: Cholesterol 181 mg/dL (< 200); HDL Cholesterol 55 mg/dL (40-59)
[2023-12-06] MEDS: SODIUM CHLORIDE 0.9% 1,000 ML IV ONE (19:45)
[2023-12-06] MEDS: SODIUM CHLORIDE 0.9% 1,000 ML IV SCH (19:45)
[2023-12-06 20:12] VITALS: BP 152/82; PULSE 74; RESP 18; TEMP 97.9; O2SAT 95
[2023-12-06] MEDS: methylPREDNISolone SOD SUCC 40 MG/ML VL IV SCH (21:37)
[2023-12-06 22:01] LABS: Urine Bacteria FEW /hpf (None Seen); Urine Blood Negative /uL (Negative); Urine Clarity Clear (Clear); Urine Color Colorless (Yellow); Urine Protein, UAD Negative (Negative); Urine Specific Gravity 1.005 (1.001-1.035); Urine Urobilinogen Normal (Negative); Urine WBC 1 /hpf (0 - 5)
[2023-12-06] MEDS: ACCU-CHEK COMFORT CURVE STRIP VI SCH (22:15)
[2023-12-06] MEDS: InsuLIN REG 1unit/0.01ml Soln (100units/ml) SC SCH (22:15)
[2023-12-06 22:29] VITALS: PULSE 82; RESP 20; O2SAT 97
[2023-12-06] MEDS: ALBUTEROL SULF 2.5 MG/0.5ML(0.5%) NEB SOLN NEB SCH (22:29)
[2023-12-06] MEDS: IPRATROPIUM BROM 0.5 MG/2.5ML INH SOL NEB SCH (22:29)
[2023-12-06 22:35] VITALS: PULSE 86; RESP 20; O2SAT 99
[2023-12-06 22:48] VITALS: BP 142/88; PULSE 103; RESP 20; TEMP 98.3; O2SAT 0
[2023-12-07] VITALS (15 sets, daily range): BP systolic 126–142; BP diastolic 72–88; PULSE 64–103; RESP 18–20; TEMP 98–98.3; O2SAT 0–100
[2023-12-07] MEDS ORDERED: ASPI-543 PO (01:20)
[2023-12-07] MEDS: ACETAMINOPHEN 325 MG TAB PO PRN (04:02)
[2023-12-07 06:50] LABS: Basophils # (auto) 0 10 ^3/uL (0-0.2); Basophils % (auto) 0.2 % (0.0-2.0); Eosinophils # (auto) 0 10 ^3/uL (0-0.8); Hematocrit 33.2 % (36.0-46.0); Hemoglobin 10.9 g/dL (12.2-16.2); Lymphocytes # (auto) 0.6 10 ^3/uL (0.4-5.4); Lymphocytes % (auto) 7.7 % (10.0-50.0); Mean Corpuscular Hemoglobin 27.5 pg (28.0-32.0); Mean Corpuscular Hgb Conc. 32.7 g/dL (32.0-36.0); Monocytes # (auto) 0.1 10 ^3/uL (0-1.3); Monocytes % (auto) 0.7 % (0.0-12.0); Neutrophils # (auto) 7.3 10 ^3/uL (1.6-8.6); Neutrophils % (auto) 91.4 % (37.0-80.0); Nucleated Red Blood Cells % 0.1 %; Red Blood Cells 3.95 10^6/uL (4.0-5.20); Red Cell Distribution Width 15.2 % (11.8-14.3)
[2023-12-07 07:15] LABS: Alanine Aminotransferase 17 U/L (7-40); Alkaline Phosphatase 97 U/L (46-116); Anion Gap 8 (5-15); BUN/Creatinine Ratio 15.4 (10.0-20.0); Blood Urea Nitrogen 16 mg/dL (9-23); Carbon Dioxide 25 mmol/L (20-30); Chloride 106 mmol/L (98-107); Potassium 4.1 mmol/L (3.5-5.1); Sodium 139 mmol/L (136-145)
[2023-12-07 07:16] LABS: Albumin 4.3 g/dL (3.2-4.8); Aspartate Aminotransferase 15 U/L (13-40); Bilirubin, Total 0.2 mg/dL (0.2-1.0); Total Protein 7.2 g/dL (5.7-8.2)
[2023-12-07 07:42] LABS: Glucose 265 mg/dL (74-106)
[2023-12-07 08:47] LABS: Rapid Influenza A Negative (Negative); Rapid Influenza B Negative (Negative)
[2023-12-07 08:48] LABS: COVID19 ANTIGEN SOFIA FIA NEGATIVE (NEGATIVE)
[2023-12-07] MEDS: ENOXAPARIN SOD 40 MG/0.4 ML SYRINGE SC SCH (09:50)
[2023-12-07] MEDS ORDERED: ALBU0.084 NEB (10:35)
[2023-12-07] MEDS ORDERED: RESPMIS2 XX (10:35)
[2023-12-07] MEDS ORDERED: IPR002IS HHN (10:35)
== END 2023-12-07 14:20 | disposition home or self-care (01) | DRG 203 ==
LOC: ER 14:04 → OVERFLOW 18:35 → WEST WING 22:48
PROVIDERS: ADMIT Nurse Practitioner Family; ATTEND Nurse Practitioner Family
DX: J45.901 Unspecified asthma with (acute) exacerbation (principal); E66.01 Morbid (severe) obesity due to excess calories; E78.5 Hyperlipidemia, unspecified; F32.A Depression, unspecified; I10 Essential (primary) hypertension; M06.9 Rheumatoid arthritis, unspecified; F41.9 Anxiety disorder, unspecified; E11.9 Type 2 diabetes mellitus without complications; Z90.49 Acquired absence of other specified parts of digestive tract; Z98.84 Bariatric surgery status; Z68.36 Body mass index [BMI] 36.0-36.9, adult; Z88.3 Allergy status to other anti-infective agents; Z88.0 Allergy status to penicillin; Z82.49 Family history of ischemic heart disease and other diseases of the circulatory system; Z79.4 Long term (current) use of insulin
CPT/HCPCS: 36415; 71045; 80048; 80053; 80061; 81001; 82962; 83036; 84443; 84484; 85025; 85379; 87426; 87804; 93005; 94640; 96361; 96365; 96375; G0378; J1815

== ENCOUNTER 2024-05-30 17:20 | Emergency (ER) | payer BC, MEDICAID ==
[~2024-05-30] VITALS: Ht 162.6 cm; Wt 95.6 kg
[~2024-05-30 17:20] MED LIST changes: +ALBU0.084 NEB; +ASPI-543 PO; +IPR002IS HHN; +RESPMIS2 XX
--- NOTE | 2024-05-30 18:10 | ED.PDOC ---
Musculoskeletal HPI Comments 58y F who presents to the ED for chief complaint of lower extremity pain. Pt states she has been having bilateral lower extremity pain for the past 2 weeks. Pt states her pain in located by her bilateral heels with pain radiating to her legs. Pt rates the pain 7/10, constant, exacerbated with movement or standing and no relieving factors. Pt states she saw her PCP and was given referral to whipper beater but states her referral is not until September 2024 and states she is having pain that made her come to the ED for further evaluation. Pt denies any recent fall or associated injury. Pt otherwise denies any other symptoms at this time. Chief Complaint: Lower Extremity Time Seen by MD: 18:02 Primary Care Provider: WARD Reviewed Notes: Nurses Notes, Medications, Allergies Allergies: Coded Allergies: Amoxicillin (Verified Allergy, Unknown, 10/05/19) Clavulanic Acid (Verified Allergy, Unknown, 10/05/19) Sulfamethoxazole w/Trimethoprim (Verified Allergy, Unknown, 02/19/19) Home Meds Active Scripts Tramadol Hcl (Tramadol Hcl) 50 Mg Tab, 50 MG PO Q8HP PRN for 7 Days, #21 TAB Prov:CESILIA PANDA MD 05/30/24 Respiratory Therapy Supplies (Full Kit Nebulizer Set) Set Mis, KIT XX Q6HP PRN, #1 Prov:ETHAN LEAVITT FERRYBOAT HELPER 12/07/23 Albuterol Sulfate (Albuterol Sulfate) 0.083 % Neb, 1 VIAL NEB Q4HPRN for 60 Days, #60 VIAL Prov:ETHAN LEAVITT FERRYBOAT HELPER 24 Ipratropium [place] (Ipratropium [place]) 0.02 % Saranya, 0.5 % HHN Q6HP PRN for 30 Days, #60 ML Prov:ETHAN LEAVITT FERRYBOAT HELPER 24 Naproxen (Naproxen) 500 Mg Tab, 500 MG PO BID, #30 TAB Prov:MARCELLE HOLLIS 04/06/23 Cephalexin Monohydrate (Cephalexin) 500 Mg Cap, 1 CAP PO QID, #32 CAP Prov:MARCELLE HOLLIS 04/06/23 Methylprednisolone (Medrol Dosepak) 4 Mg Brayan, 4 MG PO UD, #21 TAB 0 Refills UAD Prov:JIA BARRETO FERRYBOAT HELPER 03/23/23 Benzonatate (Benzonatate) 100 Mg Cap, 1 CAP PO TID, #20 CAP Prov:DIO GALICIA PAC 12/13/22 Pantoprazole Sodium Sesquihydr (Protonix) 40 Mg Tab, 40 MG PO DAILY for 7 Days, #7 TAB Prov:KAYKAY URBINA MD 11/09/22 Reported Medications Aspirin (Aspir-Low) 81 Mg Tab, 81 MG PO DAILY for 30 Days, MG 12/07/23 Meclizine Hcl (Meclizine Hcl) 25 Mg Tab, 25 MG PO PRN for 30 Days, MG 11/05/19 Alogliptin Benzoate (Alogliptin) 25 Mg Tab, 25 MG PO DAILY, TAB 11/05/19 Lorazepam (ATIVAN TABLET) 0.5 Mg Tb, 1 TAB PO HS, #90 TAB 11/05/19 Meloxicam (Meloxicam) 15 Mg Tab, 1 TAB PO DAILY, #30 TAB 2 Refills 11/05/19 Tizanidine Hydrochloride (Zanaflex) 4 Mg Cap, 4 MG PO BIDPRN, CAP 11/05/19 Beclomethasone Dipropionate (Qvar Redihaler) 80 Mcg/Act Aer, 80 MCG IN BID, AER 2 Puffs BID 11/05/19 Albuterol Sulfate (VENTOLIN MDI) 90 Mcg Ih, 90 MCG IN Q6HP, INH 2 Puffs Q6 11/05/19 Biotin (SUPER BIOTIN) 5,000 Mcg Cap, 75762 MCG PO DAILY, CAP 11/05/19 Dicyclomine HCl (Dicyclomine Hydrochloride) 20 Mg Tab, 20 MG PO Q6HPRN, TAB 11/05/19 Famotidine (PEPCID TABLET) 20 Mg Tb, 1 TAB PO BID, #60 TAB 5 Refills 11/05/19 [place]-3 Fatty Acids (Fish Oil) Cap, 1000 OR DAILY, CAP 11/05/19 Omeprazole (Gnp Omeprazole) 20 Mg Tab, 40 MG PO DAILY, TAB 11/05/19 Montelukast Sodium (MONTELUKAST SODIUM) 10 Mg Tab, 1 TAB PO QHSP, #30 TAB 5 Refills 02/20/19 Lisinopril (Lisinopril) 10 Mg Tab, 10 MG PO DAILY, TAB 02/20/19 Pravastatin Sodium (PRAVACHOL TABLET) 20 Mg Tb, 10 MG PO QHSP 02/20/19 Gabapentin (Gabapentin) 600 Mg Tab, 600 MG PO TID 02/20/19 Metformin Hydrochloride (Metformin Hcl) 1,000 Mg Tab, 1000 MG PO BID 02/20/19 Glipizide (Glipizide) 10 Mg Tab, 10 MG PO BID 02/20/19 Information Source: Patient Mode of Arrival: Ambulatory Brought in by: self Location: Bilateral Extremity Location: Foot Timing: Weeks Prehospital treatment: None Severity: Moderate Able to Move Extremity: Yes Bear Weight: Limited Pain: Moderate Mechanism: Spontaneous Circumstances: Unknown Onset of Symptoms: Spontaneous Symptoms: Pain DVT Risk Factors: NONE Last Tetanus: Unknown Associated signs and symptoms: Foot pain Past Medical History PAST MEDICAL HISTORY: Anxiety, Asthma, Depression, DM, High Lipids, HTN Surgical History: Appendectomy, BTL, Cholecystectomy, Tubal Ligation Surgical History (Other): breast implants, R thumb surgery, gastric bypass CARDIAC SURGEON History: No Pertinent CARDIAC SURGEON History Family History Family History: Family hx of heart gerrad, Family hx of liver gerard Social History Smoker: Non-Smoker Alcohol: Rarely Drugs: Denies Drug Use Lives In: Home Constitutional: denies: chills, diaphoresis, fatigue, fever, malaise, sweats, weakness, others EENTM: denies: blurred vision, double vision, ear bleeding, ear discharge, ear drainage, ear pain, ear ringing, eye pain, eye redness, hearing loss, mouth pain, mouth swelling, nasal discharge, nose bleeding, nose congestion, nose pain, photophobia, tearing, throat pain, throat swelling, voice changes, others Respiratory: denies: cough, hemoptysis, orthopnea, SOB at rest, shortness of breath, SOB with excertion, stridor, wheezing, others Cardiovascular: denies: chest pain, dizzy spells, diaphoresis, Dyspnea on exertion, edema, irregular heart beat, left arm pain, lightheadedness, palpitations, PND, syncope, others Gastrointestinal: denies: abdomen distended, abdominal pain, blood streaked bowels, constipated, diarrhea, dysphagia, difficulty swallowing, hematemesis, melena, nausea, poor appetite, poor fluid intake, rectal bleeding, rectal pain, vomiting, others Genitourinary: denies: abnormal vagina bleeding, burning, dyspareunia, dysuria, flank pain, frequency, hematuria, incontinence, pain, , vagina discharge, urgency, others Neurological: denies: dizziness, fainting, headache, left sided numbness, left sided weakness, numbness, paresthesia, pre-existing deficit, right sided numbness, right sided weakness, seizure, speech problems, tingling, tremors, weakness, others Musculoskeletal: reports: others (B/L foot pain); denies: back pain, gout, joint pain, joint swelling, muscle pain, muscle stiffness, neck pain Integumetry: denies: bruises, change in color, change in hair/nails, dryness, laceration, lesions, lumps, rash, wounds, others Allergic/Immunocompromised: denies: Difficulty Healing, Frequent Infections, Hives, Itching, others Hematologic/Lymphatic: denies: anemia, blood clots, easy bleeding, easy bruising, swollen glands, others Endocrine: denies: excessive hunger, excessive sweating, excessive thirst, excessive urination, flushing, intolerance to cold, intolerance to heat, unexplained weight gain, unexplained weight loss, others Psychiatric: denies: anxiety, bipolar disorder, depression, hopeless, panic disorder, schizophrenia, sleepless, suicidal, others All Other Systems: Reviewed and Negative Physical Exam General Appearance: No Apparent Distress HEENT: Normal ENT Inspection, Pharynx Normal, TMs Normal Neck: Full Range of Motion, Non-Tender, Normal, Normal Inspection Respiratory: Chest Non-Tender, Lungs Clear, No Accessory Muscle Use, No Respiratory Distress, Normal Breath Sounds Cardiovascular: No Edema, No JVD, No Murmur, No Gallop, Normal Peripheral Pulses, Regular Rate/Rhythm Breast Exam: Deferred Gastrointestinal: No Organomegaly, Non Tender, No Pulsatile Mass, Normal Bowel Sounds, Soft Genitalia: Deferred Pelvic: Deferred Rectal: Deferred Extremities: No calf tenderness, Normal capillary refill, No pedal edema, Other (Tenderness to the bilateral feet) Musculoskeletal : Apperance: Normal Neurologic: Alert, survey research manager II-XII nml as Tested, No Motor Deficits, Normal Affect, Normal Mood, No Sensory Deficits Cerebellar Function: Normal Reflexes: Normal Skin: Dry, Normal Color, Warm Lymphatic: No Adenopathy Was a procedure done? Was a procedure done?: No Differential Diagnosis EXT Differential Diagnosis: Sprain, Strain, Rheumatoid, Arthritis X-Ray, Labs, Meds, VS Vital Signs Date Time Temp Pulse Resp B/P (MAP) Pulse Ox O2 Delivery O2 Flow Rate FiO2 05/30/24 17:25 98.4 76 18 157/86 (109) 98 EXAM: XY R FOOT 2 VIEW XRAY Findings/Impression: 2 views of the right foot. There is no evidence of an acute fracture, dislocation, blastic, or lytic lesions. No radiopaque foreign bodies. Small to moderate achilles and plantar calcaneal enthesophytes. No superficial soft tissue abnormalities. EXAM: XY L FOOT 2 VIEW XRAY Findings/Impression: 2 views of the left foot. There is no evidence of an acute fracture, dislocation, blastic, or lytic lesions. No radiopaque foreign bodies. Small achilles and plantar calcaneal enthesophytes. No superficial soft tissue abnormalities. The patient was given prescription of tramadol Images Reviewed?: Images reviewed and evaluated by me Time of 1ST Reevaluation: 18:35 Reevaluation 1ST: Unchanged Patient Education/Counseling: Diagnosis, Treatment, Prognosis, Need For Follow Up Family Education/Counseling: No Family Present Departure 1 Departure Time of Disposition: 19:01 Impression: Primary Impression: Bilateral foot pain Disposition: HOME / SELF CARE / HOMELESS Condition: Fair e-Prescriptions Tramadol Hcl (Tramadol Hcl) 50 Mg Tab 50 MG PO Q8HP PRN for 7 Days, #21 TAB Prov: CESILIA PANDA MD 05/30/24 Discharged With: Self Critical Care Note Critical Care Time?: No Stability Stability form required: No Heart Score Heart Score: Heart Score Response (Comments) Value History N/A 0 EKG N/A 0 Age N/A 0 Risk Factors N/A 0 Troponin N/A 0 Total 0 I personally scribed for CESILIA PANDA MD ([email or web address]) on 05/30/24 at 18:10. Electronically submitted by Ashlyn Ga ([email or web address]). I personally scribed for CESILIA PANDA MD ([email or web address]) on 05/30/24 at 18:35. Electronically submitted by Ashlyn Ga ([email or web address]). CESILIA PANDA MD May 30, 2024 18:10
--- NOTE | 2024-05-30 18:24 | DVH ---
EXAM: XY R FOOT 2 VIEW XRAY CLINICAL HISTORY: pain COMPARISON: None TECHNIQUE: XY R FOOT 2 VIEW XRAY Findings/Impression: 2 views of the right foot. There is no evidence of an acute fracture, dislocation, blastic, or lytic lesions. No radiopaque foreign bodies. Small to moderate achilles and plantar calcaneal enthesophytes. No superficial soft tissue abnormalities.
--- NOTE | 2024-05-30 18:24 | DVH ---
EXAM: XY L FOOT 2 VIEW XRAY CLINICAL HISTORY: pain COMPARISON: None TECHNIQUE: XY L FOOT 2 VIEW XRAY Findings/Impression: 2 views of the left foot. There is no evidence of an acute fracture, dislocation, blastic, or lytic lesions. No radiopaque foreign bodies. Small achilles and plantar calcaneal enthesophytes. No superficial soft tissue abnormalities.
[2024-05-30] MEDS ORDERED: TRAM50TA2 PO (19:00)
[2024-05-30 19:28] VITALS: BP 156/77; PULSE 100; RESP 18; TEMP 98.2; O2SAT 97
== END 2024-05-30 19:30 | disposition home or self-care (01) ==
LOC: ER 17:20
DX: M77.31 Calcaneal spur, right foot (principal); M77.32 Calcaneal spur, left foot; J45.909 Unspecified asthma, uncomplicated; E11.9 Type 2 diabetes mellitus without complications; E78.5 Hyperlipidemia, unspecified; I10 Essential (primary) hypertension; Z88.2 Allergy status to sulfonamides; Z88.1 Allergy status to other antibiotic agents; Z88.6 Allergy status to analgesic agent; Z79.899 Other long term (current) drug therapy; Z79.84 Long term (current) use of oral hypoglycemic drugs; Z90.49 Acquired absence of other specified parts of digestive tract; Z98.890 Other specified postprocedural states
CPT/HCPCS: 73620

== ENCOUNTER 2024-09-22 20:01 | Emergency (ER) | payer BC, MEDICAID ==
[~2024-09-22] VITALS: Ht 162.6 cm; Wt 91.9 kg
[~2024-09-22 20:01] MED LIST changes: +TRAM50TA2 PO
[2024-09-22 22:54] VITALS: BP 133/85; PULSE 107; RESP 18; TEMP 98.9; O2SAT 98
--- NOTE | 2024-09-22 23:32 | ED.PDOC ---
Musculoskeletal HPI Comments 59 YEAR OLD FEMALE PRESENTS TO ER WITH COMPLAINTS OF BILATERAL FOOT PAIN X 3 DAYS. PATIENT WITH PMH OF NEUROPATHY AND PLANTAR FASCITIS REPORTS THAT SHE HAS BEEN EXPERIENCING 4/10 PAIN ADVISED TO PLANTAR SURFACE OF BILATERAL FEET WITH ASSOCIATED "BLUE DISCOLORATION" TO FEET WHEN SHE 1ST WAKES UP IN THE MORNING. STATES THAT HER SYMPTOMS FULLY RESOLVE WITH WALKING. PATIENT PRESENTS TO ER AMBULATORY ON ARRIVAL, WITH STEADY GAIT, IN NO DISTRESS WITH NO SKIN CHANGES TO BILATERAL FEET NOTED. STATES SHE DOES HAVE AN APPOINTMENT WITH HER FACING BASTER JUMPBASTING DR. SHERWOOD THIS UPCOMING FRIDAY. DENIES FEVER, TRAUMA/INJURY OR ANY FURTHER SYMPTOMS/COMPLAINTS Chief Complaint: Lower Extremity Time Seen by MD: 20:37 Primary Care Provider: WARD Reviewed Notes: Nurses Notes, Medications, Allergies Allergies: Coded Allergies: Amoxicillin (Verified Allergy, Unknown, 10/05/19) Clavulanic Acid (Verified Allergy, Unknown, 10/05/19) Sulfamethoxazole w/Trimethoprim (Verified Allergy, Unknown, 02/19/19) Home Meds Active Scripts Tramadol Hcl (Tramadol Hcl) 50 Mg Tab, 50 MG PO Q8HP PRN for 7 Days, #21 TAB Prov:CESILIA PANDA MD 05/30/24 Respiratory Therapy Supplies (Full Kit Nebulizer Set) Set Mis, KIT XX Q6HP PRN, #1 Prov:ETHAN LEAVITT WELDER PRODUCTION LINE GAS 12/07/23 Albuterol Sulfate (Albuterol Sulfate) 0.083 % Neb, 1 VIAL NEB Q4HPRN for 60 Days, #60 VIAL Prov:ETHAN LEAVITT WELDER PRODUCTION LINE GAS 24 Ipratropium [place] (Ipratropium [place]) 0.02 % Saranya, 0.5 % HHN Q6HP PRN for 30 Days, #60 ML Prov:ETHAN LEAVITT WELDER PRODUCTION LINE GAS 24 Naproxen (Naproxen) 500 Mg Tab, 500 MG PO BID, #30 TAB Prov:MARCELLE HOLLIS 04/06/23 Cephalexin Monohydrate (Cephalexin) 500 Mg Cap, 1 CAP PO QID, #32 CAP Prov:MARCELLE HOLLIS 04/06/23 Methylprednisolone (Medrol Dosepak) 4 Mg Brayan, 4 MG PO UD, #21 TAB 0 Refills UAD Prov:JIA BARRETO WELDER PRODUCTION LINE GAS 03/23/23 Benzonatate (Benzonatate) 100 Mg Cap, 1 CAP PO TID, #20 CAP Prov:DIO GALICIA PAC 12/13/22 Pantoprazole Sodium Sesquihydr (Protonix) 40 Mg Tab, 40 MG PO DAILY for 7 Days, #7 TAB Prov:KAYKAY URBINA MD 11/09/22 Reported Medications Aspirin (Aspir-Low) 81 Mg Tab, 81 MG PO DAILY for 30 Days, MG 12/07/23 Meclizine Hcl (Meclizine Hcl) 25 Mg Tab, 25 MG PO PRN for 30 Days, MG 11/05/19 Alogliptin Benzoate (Alogliptin) 25 Mg Tab, 25 MG PO DAILY, TAB 11/05/19 Lorazepam (ATIVAN TABLET) 0.5 Mg Tb, 1 TAB PO HS, #90 TAB 11/05/19 Meloxicam (Meloxicam) 15 Mg Tab, 1 TAB PO DAILY, #30 TAB 2 Refills 11/05/19 Tizanidine Hydrochloride (Zanaflex) 4 Mg Cap, 4 MG PO BIDPRN, CAP 11/05/19 Beclomethasone Dipropionate (Qvar Redihaler) 80 Mcg/Act Aer, 80 MCG IN BID, AER 2 Puffs BID 11/05/19 Albuterol Sulfate (VENTOLIN MDI) 90 Mcg Ih, 90 MCG IN Q6HP, INH 2 Puffs Q6 11/05/19 Biotin (SUPER BIOTIN) 5,000 Mcg Cap, 89957 MCG PO DAILY, CAP 11/05/19 Dicyclomine HCl (Dicyclomine Hydrochloride) 20 Mg Tab, 20 MG PO Q6HPRN, TAB 11/05/19 Famotidine (PEPCID TABLET) 20 Mg Tb, 1 TAB PO BID, #60 TAB 5 Refills 11/05/19 [place]-3 Fatty Acids (Fish Oil) Cap, 1000 OR DAILY, CAP 11/05/19 Omeprazole (Gnp Omeprazole) 20 Mg Tab, 40 MG PO DAILY, TAB 11/05/19 Montelukast Sodium (MONTELUKAST SODIUM) 10 Mg Tab, 1 TAB PO QHSP, #30 TAB 5 Refills 02/20/19 Lisinopril (Lisinopril) 10 Mg Tab, 10 MG PO DAILY, TAB 02/20/19 Pravastatin Sodium (PRAVACHOL TABLET) 20 Mg Tb, 10 MG PO QHSP 02/20/19 Gabapentin (Gabapentin) 600 Mg Tab, 600 MG PO TID 02/20/19 Metformin Hydrochloride (Metformin Hcl) 1,000 Mg Tab, 1000 MG PO BID 02/20/19 Glipizide (Glipizide) 10 Mg Tab, 10 MG PO BID 02/20/19 Information Source: Patient Mode of Arrival: Ambulatory Past Medical History PAST MEDICAL HISTORY: Anxiety, Asthma, Depression, DM, High Lipids, HTN Past Medical History (Other): Plantar Fasciitis bilateral feet Neuropathy Surgical History: Appendectomy, BTL, Cholecystectomy, Tubal Ligation PUMP MACHINE OPERATOR History: No Pertinent PUMP MACHINE OPERATOR History Family History Family History: Family hx of heart gerard, Family hx of liver gerard Social History Smoker: Non-Smoker Alcohol: Rarely Drugs: Denies Drug Use Lives In: Home Constitutional: denies: chills, diaphoresis, fatigue, fever, malaise, sweats, weakness, others EENTM: denies: blurred vision, double vision, ear bleeding, ear discharge, ear drainage, ear pain, ear ringing, eye pain, eye redness, hearing loss, mouth pain, mouth swelling, nasal discharge, nose bleeding, nose congestion, nose p ain, photophobia, tearing, throat pain, throat swelling, voice changes, others Respiratory: denies: cough, hemoptysis, orthopnea, SOB at rest, shortness of breath, SOB with excertion, stridor, wheezing, others Cardiovascular: denies: chest pain, dizzy spells, diaphoresis, Dyspnea on exertion, edema, irregular heart beat, left arm pain, lightheadedness, palpitations, PND, syncope, others Gastrointestinal: denies: abdomen distended, abdominal pain, blood streaked bowels, constipated, diarrhea, dysphagia, difficulty swallowing, hematemesis, melena, nausea, poor appetite, poor fluid intake, rectal bleeding, rectal pain, vomiting, others Genitourinary: denies: abnormal vagina bleeding, burning, dyspareunia, dysuria, flank pain, frequency, hematuria, incontinence, pain, , vagina discharge, urgency, others Neurological: denies: dizziness, fainting, headache, left sided numbness, left sided weakness, numbness, paresthesia, pre-existing deficit, right sided numbness, right sided weakness, seizure, speech problems, tingling, tremors, weakness, others Musculoskeletal: reports: others (As stated in HPI) Integumetry: reports: others (As stated in HPI) Allergic/Immunocompromised: denies: Difficulty Healing, Frequent Infections, Hives, Itching, others Hematologic/Lymphatic: denies: anemia, blood clots, easy bleeding, easy bruising, swollen glands, others Endocrine: denies: excessive hunger, excessive sweating, excessive thirst, excessive urination, flushing, intolerance to cold, intolerance to heat, unexplained weight gain, unexplained weight loss, others Psychiatric: denies: anxiety, bipolar disorder, depression, hopeless, panic disorder, schizophrenia, sleepless, suicidal, others Physical Exam General Appearance: No Apparent Distress HEENT: PERRL/EOMI Neck: Full Range of Motion, Non-Tender, Normal Respiratory: Chest Non-Tender, Lungs Clear, No Accessory Muscle Use, No Respiratory Distress, Normal Breath Sounds Cardiovascular: No Murmur, No Gallop, Regular Rate/Rhythm Breast Exam: Deferred Gastrointestinal: NOT DONE Genitalia: Deferred Pelvic: Deferred Rectal: Deferred Extremities: Normal capillary refill, Normal range of motion Musculoskeletal : Extremity Location: Foot (Slight TTP centralized to calcaneus of bilateral feet. No skin changes/deformity noted. Gait intact without abnormality) Neurologic: Alert, tobacco roller II-XII nml as Tested, No Motor Deficits, Normal Affect, Normal Mood, No Sensory Deficits Cerebellar Function: Normal Reflexes: Normal Skin: Dry, Normal Color, Warm Peripheral Pulses: 2+ dorsalis pedis (R), 2+ dorsalis pedis (L) Lymphatic: No Adenopathy Was a procedure done? Was a procedure done?: No Sedation Sedation?: No Differential Diagnosis EXT Differential Diagnosis: Fracture, Dislocation, Neurovascular injury X-Ray, Labs, Meds, VS Vital Signs Date Time Temp Pulse Resp B/P (MAP) Pulse Ox O2 Delivery O2 Flow Rate FiO2 09/22/24 22:54 107 18 98 Room Air 09/22/24 22:54 98.9 107 18 133/85 (101) 98 98.9 09/22/24 20:37 98.9 107 18 133/85 (101) 98 98.9 Lab Test 09/22/24 20:34 Range/Units POC Glucose 176 H 70-106 mg/dl POC glucose reviewed Patient neurovascularly intact and in no distress during ER visit/prior to discharge Stretching exercises and heal/arch support inserts discussed and advised Advised to follow up with PCP and podiatry in 1-2 days Patient verbalized understanding and agreeable with current plan of care Advised to return to ER immediately if symptoms worsen Time of 1ST Reevaluation: 23:14 Reevaluation 1ST: N/A Patient Education/Counseling: Diagnosis, Treatment, Prognosis, Need For Follow Up Family Education/Counseling: No Family Present Departure 1 Departure Time of Disposition: 23:30 Impression: Primary Impression: Plantar fasciitis of left foot Additional Impression: Plantar fasciitis of right foot Disposition: 01 HOME / SELF CARE / HOMELESS Condition: Stable Discharged With: Self Critical Care Note Critical Care Time?: No Stability Stability form required: No Heart Score Heart Score: Heart Score Response (Comments) Value History N/A 0 EKG N/A 0 Age N/A 0 Risk Factors N/A 0 Troponin N/A 0 Total 0 ZACK KASPER Sep 22, 2024 23:32
== END 2024-09-22 23:45 | disposition home or self-care (01) ==
LOC: ER 20:17
DX: M72.2 Plantar fascial fibromatosis (principal); F41.9 Anxiety disorder, unspecified; J45.909 Unspecified asthma, uncomplicated; E11.40 Type 2 diabetes mellitus with diabetic neuropathy, unspecified; I10 Essential (primary) hypertension; E78.5 Hyperlipidemia, unspecified; Z90.49 Acquired absence of other specified parts of digestive tract; Z88.2 Allergy status to sulfonamides; Z98.51 Tubal ligation status; Z79.82 Long term (current) use of aspirin; Z79.84 Long term (current) use of oral hypoglycemic drugs; Z79.899 Other long term (current) drug therapy; Z88.0 Allergy status to penicillin; Z88.1 Allergy status to other antibiotic agents; Z79.51 Long term (current) use of inhaled steroids; Z79.1 Long term (current) use of non-steroidal anti-inflammatories (NSAID)
CPT/HCPCS: 82947; 82962

== ENCOUNTER 2024-11-30 12:58 | Inpatient (IN) | payer BC, MEDICAID ==
[~2024-11-30] VITALS: Ht 162.6 cm; Wt 94.1 kg
--- NOTE | 2024-11-30 14:47 | ED.PDOC ---
GI ASSESSMENT HPI Comments This is a 59-year-old female who comes in with chief complaint of four days of abdominal pain. The patient states that yesterday she did have a low-grade fever. Yesterday was worse but it actually improved today. At this time she states that the pain is a 4/10. She describes it as epigastric in nature at times but sometimes it is diffuse. She denies any nausea, vomiting or diarrhea. The patient was able to ambulate into the emergency department's without any difficulty. She is currently on Ozempic. Chief Complaint: Abdominal Pain Time Seen by MD: 13:07 Primary Care Provider: WARD Reviewed Notes: Nurses Notes, Medications, Allergies (Allergies listed above) Allergies: Coded Allergies: Amoxicillin (Verified Allergy, Unknown, 10/05/19) Clavulanic Acid (Verified Allergy, Unknown, 10/05/19) Sulfamethoxazole w/Trimethoprim (Verified Allergy, Unknown, 02/19/19) Home Meds Active Scripts Tramadol Hcl (Tramadol Hcl) 50 Mg Tab, 50 MG PO Q8HP PRN for 7 Days, #21 TAB Prov:CESILIA PANDA MD 05/30/24 Respiratory Therapy Supplies (Full Kit Nebulizer Set) Set Mis, KIT XX Q6HP PRN, #1 Prov:ETHAN LEAVITT PAYROLL HUMAN RESOURCES ASSISTANT 12/07/23 Albuterol Sulfate (Albuterol Sulfate) 0.083 % Neb, 1 VIAL NEB Q4HPRN for 60 Days, #60 VIAL Prov:ETHAN LEAVITT PAYROLL HUMAN RESOURCES ASSISTANT 24 Ipratropium [place] (Ipratropium [place]) 0.02 % [place], 0.5 % HHN Q6HP PRN for 30 Days, #60 ML Prov:ETHAN LEAVITT PAYROLL HUMAN RESOURCES ASSISTANT 24 Naproxen (Naproxen) 500 Mg Tab, 500 MG PO BID, #30 TAB Prov:MARCELLE HOLLIS 04/06/23 Cephalexin Monohydrate (Cephalexin) 500 Mg Cap, 1 CAP PO QID, #32 CAP Prov:MARCELLE HOLLIS 04/06/23 Methylprednisolone (Medrol Dosepak) 4 Mg Brayan, 4 MG PO UD, #21 TAB 0 Refills UAD Prov:JIA BARRETO NP 03/23/23 Benzonatate (Benzonatate) 100 Mg Cap, 1 CAP PO TID, #20 CAP Prov:DIO GALICIA PAC 12/13/22 Pantoprazole Sodium Sesquihydr (Protonix) 40 Mg Tab, 40 MG PO DAILY for 7 Days, #7 TAB Prov:KAYKAY URBINA MD 11/09/22 Reported Medications Aspirin (Aspir-Low) 81 Mg Tab, 81 MG PO DAILY for 30 Days, MG 12/07/23 Meclizine Hcl (Meclizine Hcl) 25 Mg Tab, 25 MG PO PRN for 30 Days, MG 11/05/19 Alogliptin Benzoate (Alogliptin) 25 Mg Tab, 25 MG PO DAILY, TAB 11/05/19 Lorazepam (ATIVAN TABLET) 0.5 Mg Tb, 1 TAB PO HS, #90 TAB 11/05/19 Meloxicam (Meloxicam) 15 Mg Tab, 1 TAB PO DAILY, #30 TAB 2 Refills 11/05/19 Tizanidine Hydrochloride (Zanaflex) 4 Mg Cap, 4 MG PO BIDPRN, CAP 11/05/19 Beclomethasone Dipropionate (Qvar Redihaler) 80 Mcg/Act Aer, 80 MCG IN BID, AER 2 Puffs BID 11/05/19 Albuterol Sulfate (VENTOLIN MDI) 90 Mcg Ih, 90 MCG IN Q6HP, INH 2 Puffs Q6 11/05/19 Biotin (SUPER BIOTIN) 5,000 Mcg Cap, 71448 MCG PO DAILY, CAP 11/05/19 Dicyclomine HCl (Dicyclomine Hydrochloride) 20 Mg Tab, 20 MG PO Q6HPRN, TAB 11/05/19 Famotidine (PEPCID TABLET) 20 Mg Tb, 1 TAB PO BID, #60 TAB 5 Refills 11/05/19 [place]-3 Fatty Acids (Fish Oil) Cap, 1000 OR DAILY, CAP 11/05/19 Omeprazole (Gnp Omeprazole) 20 Mg Tab, 40 MG PO DAILY, TAB 11/05/19 Montelukast Sodium (MONTELUKAST SODIUM) 10 Mg Tab, 1 TAB PO QHSP, #30 TAB 5 Refills 02/20/19 Lisinopril (Lisinopril) 10 Mg Tab, 10 MG PO DAILY, TAB 02/20/19 Pravastatin Sodium (PRAVACHOL TABLET) 20 Mg Tb, 10 MG PO QHSP 02/20/19 Gabapentin (Gabapentin) 600 Mg Tab, 600 MG PO TID 02/20/19 Metformin Hydrochloride (Metformin Hcl) 1,000 Mg Tab, 1000 MG PO BID 02/20/19 Glipizide (Glipizide) 10 Mg Tab, 10 MG PO BID 02/20/19 Information Source: Patient Mode of Arrival: Ambulatory Timing: Days (Symptoms started four days ago) Duration: Since onset Prehospital treatment: None Quality: Burning, Cramping Vomitus: Bilious Stool: Normal Severity: Moderate Recent: None Recent Hx of: None Pain Location: Epigastric Modifying Factors: Nothing Associated sign and symptoms: Abdominal Pain Past Medical History PAST MEDICAL HISTORY: Anxiety, Asthma, Depression, DM, High Lipids, HTN Surgical History: Appendectomy, BTL, Cholecystectomy, Tubal Ligation Surgical History (Other): Right hand surgery, breast implant, abdominal plasty, gastric bypass surgery AERIAL PLANTING AND CULTIVATION MANAGER History: No Pertinent AERIAL PLANTING AND CULTIVATION MANAGER History Family History Family History: Family hx of heart gerard, Family hx of liver gerard Social History Smoker: Non-Smoker Alcohol: Rarely Drugs: Denies Drug Use Lives In: Home Constitutional: reports: fever; denies: chills, diaphoresis, fatigue, malaise, sweats, weakness, others EENTM: denies: blurred vision, double vision, ear bleeding, ear discharge, ear drainage, ear pain, ear ringing, eye pain, eye redness, hearing loss, mouth pain, mouth swelling, nasal discharge, nose bleeding, nose congestion, nose pain, photophobia, tearing, throat pain, throat swelling, voice changes, others Respiratory: denies: cough, hemoptysis, orthopnea, SOB at rest, shortness of breath, SOB with excertion, stridor, wheezing, others Cardiovascular: denies: chest pain, dizzy spells, diaphoresis, Dyspnea on exertion, edema, irregular heart beat, left arm pain, lightheadedness, palpitations, PND, syncope, others Gastrointestinal: reports: abdominal pain; denies: abdomen distended, blood streaked bowels, constipated, diarrhea, dysphagia, difficulty swallowing, hematemesis, melena, nausea, poor appetite, poor fluid intake, rectal bleeding, rectal pain, vomiting, others Genitourinary: denies: abnormal vagina bleeding, burning, dyspareunia, dysuria, flank pain, frequency, hematuria, incontinence, pain, , vagina discharge, urgency, others Neurological: denies: dizziness, fainting, headache, left sided numbness, left sided weakness, numbness, paresthesia, pre-existing deficit, right sided numbness, right sided weakness, seizure, speech problems, tingling, tremors, weakness, others Musculoskeletal: denies: back pain, gout, joint pain, joint swelling, muscle pain, muscle stiffness, neck pain, others Integumetry: denies: bruises, change in color, change in hair/nails, dryness, laceration, lesions, lumps, rash, wounds, others Hematologic/Lymphatic: denies: anemia, blood clots, easy bleeding, easy bruising, swollen glands, others Endocrine: denies: excessive hunger, excessive sweating, excessive thirst, excessive urination, flushing, intolerance to cold, intolerance to heat, unexplained weight gain, unexplained weight loss, others Psychiatric: denies: anxiety, bipolar disorder, depression, hopeless, panic disorder, schizophrenia, sleepless, suicidal, others Physical Exam General Appearance: Moderate Distress HEENT: Normal ENT Inspection, Pharynx Normal, TMs Normal Neck: Full Range of Motion, Non-Tender, Normal, Normal Inspection Respiratory: Chest Non-Tender, Lungs Clear, No Accessory Muscle Use, No Respiratory Distress, Normal Breath Sounds Cardiovascular: No Edema, No JVD, No Murmur, No Gallop, Normal Peripheral Pulses, Regular Rate/Rhythm Breast Exam: Deferred Gastrointestinal: Epigastric, No Organomegaly, No Pulsatile Mass, Normal Bowel Sounds, Soft, Tenderness Genitalia: Deferred Pelvic: Deferred Rectal: Deferred Extremities: No calf tenderness, Normal capillary refill, Normal inspection, Normal range of motion, Non-tender, No pedal edema Musculoskeletal : Apperance: Normal Neurologic: Alert, postdoctoral research fellow II-XII nml as Tested, Motor Weakness, Normal Affect, Normal Mood, No Sensory Deficits Cerebellar Function: Normal Reflexes: Normal Skin: Dry, Normal Color, Warm Lymphatic: No Adenopathy Was a procedure done? Was a procedure done?: No GI differential Dx Differential Diagnosis: Cholangitis, Cholecystitis, Gastritis/PUD, Gastroenteritis X-Ray, Labs, Meds, VS Vital Signs Date Time Temp Pulse Resp B/P (MAP) Pulse Ox O2 Delivery O2 Flow Rate FiO2 11/30/24 13:40 97.5 95 18 137/87 (104) 95 97.5 Lab Test 11/30/24 14:46 Range/Units White Blood Count 8.6 4.4-10.8 10^3/uL Red Blood Count 4.17 4.0-5.20 10^6/uL Hemoglobin 11.2 L 12.2-16.2 g/dL Hematocrit 34.9 L 36.0-46.0 % Mean Corpuscular Volume 83.8 80.0-100.0 fL Mean Corpuscular Hemoglobin 26.9 L 28.0-32.0 pg Mean Corpuscular Hemoglobin Concent 32.2 32.0-36.0 g/dL Red Cell Distribution Width 16.4 H 11.8-14.3 % Platelet Count 399 140-450 10^3/uL Mean Platelet Volume 7.4 6.9-10.8 fL Neutrophils (%) (Auto) 73.6 37.0-80.0 % Lymphocytes (%) (Auto) 16.9 10.0-50.0 % Monocytes (%) (Auto) 7.1 0.0-12.0 % Eosinophils (%) (Auto) 1.8 0.0-7.0 % Basophils (%) (Auto) 0.6 0.0-2.0 % Neutrophils # (Auto) 6.3 1.6-8.6 10 ^3/uL Lymphocytes # (Auto) 1.5 0.4-5.4 10 ^3/uL Monocytes # (Auto) 0.6 0-1.3 10 ^3/uL Eosinophils # (Auto) 0.2 0-0.8 10 ^3/uL Basophils # (Auto) 0.1 0-0.2 10 ^3/uL Nucleated Red Blood Cells 0.2 % Sodium Level 142 136-145 mmol/L Potassium Level 4.0 3.5-5.1 mmol/L Chloride Level 107 98-107 mmol/L Carbon Dioxide Level 27 20-31 mmol/L Anion Gap 8 5-15 Blood Urea Nitrogen 17 9-23 mg/dL Creatinine 0.93 0.550-1.02 mg/dL Glomerular Filtration Rate Calc 70 >90 mL/min BUN/Creatinine Ratio 18.3 10.0-20.0 Serum Glucose 76 74-106 mg/dL Calcium Level 9.2 8.7-10.4 mg/dL Total Bilirubin 0.2 0.2-1.0 mg/dL Aspartate Amino Transferase (AST) 31 13-40 U/L Alanine Aminotransferase (ALT) 18 7-40 U/L Alkaline Phosphatase 93 46-116 U/L Total Protein 6.9 5.7-8.2 g/dL Albumin 4.3 3.2-4.8 g/dL Lipase 49 12-53 U/L The patient's CBC is within normal limits The chemistry panel is within normal limits The lipase is within normal limits The ultrasound of the gallbladder shows: IMPRESSION: 1. Small polyp in the gallbladder wall 2. Both kidneys appears to be mildly echogenic suggesting medical renal disease.. 3. Small ascites seen throughout the abdomen. The patient's CBC is within normal limits The chemistry panel is within normal limits The patient continues to have abdominal pain The patient is being admitted at this time The patient was given Protonix 40 mg IV push The patient was given Zofran 4 mg IV push Images Reviewed?: Images reviewed and evaluated by me Time of 1ST Reevaluation: 15:29 Reevaluation 1ST: Unchanged Patient Education/Counseling: Diagnosis, Treatment, Prognosis Family Education/Counseling: No Family Present Departure 1 Departure Time of Disposition: 15:46 Impression: Primary Impression: Intractable abdominal pain Additional Impressions: Gallbladder polyp Vomiting Qualified Codes: R11.14 - Bilious vomiting Disposition: 09 ADMITTED INPATIENT Admit to: Med Surg Condition: Fair Critical Care Note Critical Care Time?: No Stability Stability form required: Yes Unstable for transfer: ED Physician Assesment (Clinical assesment) Heart Score Heart Score: Heart Score Response (Comments) Value History N/A 0 EKG N/A 0 Age N/A 0 Risk Factors N/A 0 Troponin N/A 0 Total 0 CESILIA PANDA MD November 30, 2024 14:47
--- NOTE | 2024-11-30 14:58 | DVH ---
Please correlate with Alk Phos, bilirubin, blood culture, fever, WBC for primary cholecystitis, versu s secondary wall thickening with lipase for pancreatitis, AST/ALT for hepatitis/cirrhosis, BUN/Cr for renal failure, and BNP/albumin for CHF/low protein state. Findings: The liver is normal size with normal echotexture measuring 15.1 cm. No dilated duct or mass seen. The gallbladder has a small polyp measuring 0.42 cm. The gallbladder wall thickness is 0.16 cm . The common bile duct measures 0.44 cm. The right kidney length is 9.2 cm the left kidney measures 8 .3 cm. There is no mass or hydronephrosis. Both kidneys appear mildly echogenic suggesting underlying medical renal disease. There is no evidence of any mass or calculi or obstructive uropathy. The panc reas is obscured by overlying bowel gas. Small amount of ascites seen throughout the abdomen. IMPRESSION: 1. Small polyp in the gallbladder wall 2. Both kidneys appears to be mildly echogenic suggesting medical renal disease.. 3. Small ascites seen throughout the abdomen.
[2024-11-30 15:01] LABS: Basophils # (auto) 0.1 10 ^3/uL (0-0.2); Basophils % (auto) 0.6 % (0.0-2.0); Eosinophils # (auto) 0.2 10 ^3/uL (0-0.8); Eosinophils % (auto) 1.8 % (0.0-7.0); Hematocrit 34.9 % (36.0-46.0); Hemoglobin 11.2 g/dL (12.2-16.2); Lymphocytes # (auto) 1.5 10 ^3/uL (0.4-5.4); Lymphocytes % (auto) 16.9 % (10.0-50.0); Mean Corpuscular Hemoglobin 26.9 pg (28.0-32.0); Mean Corpuscular Hgb Conc. 32.2 g/dL (32.0-36.0); Mean Corpuscular Volume 83.8 fL (80.0-100.0); Monocytes # (auto) 0.6 10 ^3/uL (0-1.3); Monocytes % (auto) 7.1 % (0.0-12.0); Neutrophils # (auto) 6.3 10 ^3/uL (1.6-8.6); Neutrophils % (auto) 73.6 % (37.0-80.0); Nucleated Red Blood Cells % 0.2 %; Platelet Count (auto) 399 10^3/uL (140-450); Red Blood Cells 4.17 10^6/uL (4.0-5.20); Red Cell Distribution Width 16.4 % (11.8-14.3); White Blood Cell 8.6 10^3/uL (4.4-10.8)
[2024-11-30 15:25] LABS: Alanine Aminotransferase 18 U/L (7-40); Alkaline Phosphatase 93 U/L (46-116); Anion Gap 8 (5-15); Aspartate Aminotransferase 31 U/L (13-40); BUN/Creatinine Ratio 18.3 (10.0-20.0); Blood Urea Nitrogen 17 mg/dL (9-23); Calcium 9.2 mg/dL (8.7-10.4); Carbon Dioxide 27 mmol/L (20-31); Chloride 107 mmol/L (98-107); Glucose 76 mg/dL (74-106); Lipase 49 U/L (12-53); Sodium 142 mmol/L (136-145); Total Protein 6.9 g/dL (5.7-8.2)
[2024-11-30 15:26] LABS: Albumin 4.3 g/dL (3.2-4.8); Bilirubin, Total 0.2 mg/dL (0.2-1.0)
--- NOTE | 2024-11-30 15:31 | DVHHP2 ---
History of Present Illness Reason for Visit: abdominal pain History of Present Illness 59-year-old female past medical history anxiety asthma depression diabetes hyperlipidemia hypertension surgical history appendectomy BTL tubal ligation gastric bypass abdominal plasty breast implants right-hand surgery patient den ies any history gallbladder surgery chief complaint patient states has been having epigastric abdominal pain has been going on for two months. She states she has subjective fevers yesterday but she did not check her temperature she denies any vomiting no diarrhea no tearing sensation in her abdomen. No chest pain no shortness shortness of the breath. Patient states nothing makes her pain better in his in makes it worse when speaking with the patient patient states she still have her gallbladder but she has a paced removed. When evaluating patient's labs and imaging from the ED CBC was unremarkable ultrasound shows abdominal gallbladder polyp mild wall think any and small abdominal ascites. CMP was unremarkable lipase was negative. With these findings we will admit we will add troponin EKG Protonix and sucralfate also add a CT scan abdomen pelvis. We will admit for pain management Past Medical History See HPI above Past Surgical History See HPI above Family History Reviewed, non-contributory to the management of this case. Past Social History The patient lives at home, denies smoking, alcohol or illicit drugs abuse. Review of Systems Constitutional: No: Fever, Chills, Sweats, Weakness, Malaise, Other Eyes: No: Pain, Vision change, Conjunctivae inflammation, Eyelid inflammation, Other, Redness ENT: No: Ear pain, Ear discharge, Nose pain, Nose discharge, Nose congestion, Mouth pain, Mouth swelling, Throat pain, Throat swelling, Other Respiratory: No: Cough, Dry, Shortness of breath, SOB with excertion, Wheezing, Hemoptysis, Pleuritic Pain, Sputum, Wheezing, Other Cardiovascular: No: Chest Pain, Palpitations, Orthopnea, Paroxysmal Noc. Dyspnea, Edema, Lt Headedness, Other Gastrointestinal: Nausea, Vomiting, Abdominal Pain; No: Diarrhea, Constipation, Melena, Hematochezia, Other Genitourinary: No Dysuria, No Frequency, No Incontinence, No Hematuria, No Retention, No Other Musculoskeletal: No: other, neck pain, shoulder pain, arm pain, back pain, hand pain, leg pain, foot pain Skin: No: Rash, Lesions, Jaundice, Bruising, Other Neurological: No: Weakness, Numbness, Incoordination, Change in speech, Confusion, Seizures, Other Allergies: Coded Allergies: Amoxicillin (Verified Allergy, Unknown, 10/05/19) Clavulanic Acid (Verified Allergy, Unknown, 10/05/19) Sulfamethoxazole w/Trimethoprim (Verified Allergy, Unknown, 02/19/19) Exam Vital Signs Vital Signs Date Time Temp Pulse Resp B/P (MAP) Pulse Ox O2 Delivery O2 Flow Rate FiO2 11/30/24 13:40 97.5 95 18 137/87 (104) 95 97.5 General Appearance: Alert, Oriented X3, Cooperative, No acute distress HEENT: Atraumatic, PERRLA, EOMI, Mucous membr. moist/pink Respiratory: Clear to auscultation, Normal air movement Cardiovascular: Regular rate, Normal S1, Normal S2, No murmurs Abdominal: Normal bowel sounds, Soft, No tenderness, No hepatospenomegaly, No masses Extremities: No clubbing, No cyanosis, No edema, Normal pulses, No tenderness/swelling Skin: No rashes, No breakdown, No significant lesion Neuro: Normal gait, Normal speech, Strength at 5/5 X4 ext, Normal tone, Sensation intact, Cranial nerves 3-12 NL Psych/Mental Status: Mental status NL, Mood NL Labs/Xrays Ultrasound abdomen shows polyp in his gallbladder small ascites in the abdomen I reviewed labs, imaging CT scan abdomen pelvis, EKG and all diagnostic studies on this patient from ED records and the medical chart Labs Test 11/30/24 14:46 Range/Units White Blood Count 8.6 4.4-10.8 10^3/uL Red Blood Count 4.17 4.0-5.20 10^6/uL Hemoglobin 11.2 L 12.2-16.2 g/dL Hematocrit 34.9 L 36.0-46.0 % Mean Corpuscular Volume 83.8 80.0-100.0 fL Mean Corpuscular Hemoglobin 26.9 L 28.0-32.0 pg Mean Corpuscular Hemoglobin Concent 32.2 32.0-36.0 g/dL Red Cell Distribution Width 16.4 H 11.8-14.3 % Platelet Count 399 140-450 10^3/uL Mean Platelet Volume 7.4 6.9-10.8 fL Neutrophils (%) (Auto) 73.6 37.0-80.0 % Lymphocytes (%) (Auto) 16.9 10.0-50.0 % Monocytes (%) (Auto) 7.1 0.0-12.0 % Eosinophils (%) (Auto) 1.8 0.0-7.0 % Basophils (%) (Auto) 0.6 0.0-2.0 % Neutrophils # (Auto) 6.3 1.6-8.6 10 ^3/uL Lymphocytes # (Auto) 1.5 0.4-5.4 10 ^3/uL Monocytes # (Auto) 0.6 0-1.3 10 ^3/uL Eosinophils # (Auto) 0.2 0-0.8 10 ^3/uL Basophils # (Auto) 0.1 0-0.2 10 ^3/uL Nucleated Red Blood Cells 0.2 % Sodium Level 142 136-145 mmol/L Potassium Level 4.0 3.5-5.1 mmol/L Chloride Level 107 98-107 mmol/L Carbon Dioxide Level 27 20-31 mmol/L Anion Gap 8 5-15 Blood Urea Nitrogen 17 9-23 mg/dL Creatinine 0.93 0.550-1.02 mg/dL Glomerular Filtration Rate Calc 70 >90 mL/min BUN/Creatinine Ratio 18.3 10.0-20.0 Serum Glucose 76 74-106 mg/dL Calcium Level 9.2 8.7-10.4 mg/dL Total Bilirubin 0.2 0.2-1.0 mg/dL Aspartate Amino Transferase (AST) 31 13-40 U/L Alanine Aminotransferase (ALT) 18 7-40 U/L Alkaline Phosphatase 93 46-116 U/L Total Protein 6.9 5.7-8.2 g/dL Albumin 4.3 3.2-4.8 g/dL Lipase 49 12-53 U/L Assessment/Plan Assessment/Plan acute intractable abdominal pain ct scan found gall bladder polyp but pt still have gall bladder ordered diet as can tolerate ordered protonix and sucralfate for now ordered ivf ordered bentyl ordered morphine prn if severe pain no need for antibiotics at this time ordered trop fu results ordered ekg fu results lipase normal ordered ct scan abd pelvis fu results chronic problems anxiety asthma depression dm ISS hld htn fen/ppx advance diet as tolerated ivf protonix scd plan admit to medicine for pain management Plan discussed with: Patient Date of Service: November 30, 2024 Billing Provider: PRADIP ORTA DNP Common Visit Codes: [id number] INP/OBS CARE (HIGH) PRADIP ORTA DNP November 30, 2024 15:31
[2024-11-30] MEDS: ENOXAPARIN SOD 40 MG/0.4 ML SYRINGE SC SCH (16:00)
[2024-11-30] MEDS ORDERED: NITROGLYCERIN 0.4 MG SL TAB SL PRN (16:00)
[2024-11-30] MEDS ORDERED: DEXTROSE (50%) 50ML SYRG IV PRN (16:00)
[2024-11-30] MEDS ORDERED: TEMAZEPAM 15 MG CAP PO PRN (16:00)
[2024-11-30] MEDS: SODIUM CHLORIDE 0.9% 1,000 ML IV SCH (16:00)
[2024-11-30] MEDS ORDERED: DOCUSATE SOD 100 MG CAP PO PRN (16:00)
[2024-11-30] MEDS ORDERED: MECLIZINE HCL 25 MG TAB PO PRN (16:00)
--- NOTE | 2024-11-30 16:56 | DVH ---
EXAM: CT CT AB PEL WO CON-NO ORAL OR IV INDICATION: eval for acute abd pain TECHNIQUE: Volumetric multidetector CT images of the abdomen and pelvis were obtained without contras t. All CT scans at this facility use dose modulation, iterative reconstruction, and/or weight based d osing when appropriate to reduce radiation dose to as low as reasonably achievable. COMPARISON: CT CT AB PEL WO CON-NO ORAL OR IV on DOS: 11/09/22 FINDINGS: [LOWER CHEST]: The partially visualized lung bases are clear without a pleural effusion. The cardiac size is normal without pericardial effusion. Intact bilateral breast implants. [LIVER]: Normal hepatic size without suspicious focal lesion. [GALLBLADDER AND BILIARY TREE]: No cholelithiasis. [SPLEEN]: Inconspicuous areas of high density along the splenic hilum [PANCREAS]: Unremarkable. [ADRENAL GLANDS]: Unremarkable [KIDNEYS]: No hydronephrosis. 3-4 mm nonobstructive left renal caliceal stone. No suspicious focal le [place]. [BLADDER]: Unremarkable for the degree distention. [REPRODUCTIVE ORGANS]: Uterus appears within normal limits. No abnormal ovarian enlargement. [BOWEL/MESENTERY]: Postsurgical changes to the stomach. 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 No CT claudia dence of bowel obstruction. Extensive suspected high density peritoneal carcinomatosis most conspicuo us in the upper abdomen. [ASCITES]: Small volume ascites with suspected peritoneal carcinomatosis [LYMPHADENOPATHY]: No pathologically enlarged lymph nodes by CT size criteria [VASCULATURE]: No aneurysmal dilatation. [ABDOMINAL WALL]: Unremarkable. [MUSCULOSKELETAL]: No acute fracture or aggressive focal osseous lesion. Multifocal degenerative santana ge of the visualized spine. IMPRESSION: 1. Small volume ascites with extensive suspected peritoneal carcinomatosis. No measurable lymphadenop athy.
[2024-11-30 17:43] LABS: Urine Bacteria FEW /hpf (None Seen); Urine Blood Negative /uL (Negative); Urine Clarity Clear (Clear); Urine Color Dark-Yellow (Yellow); Urine Hyaline Cast FEW /lpf (0 - 2); Urine Mucus FEW (None Seen); Urine Protein, UAD 1+ (Negative); Urine Specific Gravity 1.029 (1.001-1.035); Urine Squamous Epithelial Cell FEW /hpf (<5); Urine Urobilinogen Normal (Negative); Urine WBC 2 /HPF (0-5)
[2024-11-30] MEDS ORDERED: ALBUTEROL SULF HFA 90MCG INH 200DOSE IN SCH (18:00)
[2024-11-30] MEDS: DICYCLOMINE HCL 10 MG CAP PO SCH (18:00)
[2024-11-30] MEDS ORDERED: ALBUTEROL SULF 2.5 MG/0.5ML(0.5%) NEB SOLN NEB PRN (18:45)
[2024-11-30 18:48] VITALS: BP 117/74; PULSE 88; RESP 16; O2SAT 97
[2024-11-30] MEDS: ACCU-CHEK COMFORT CURVE STRIP VI SCH (20:33)
[2024-11-30] MEDS: InsuLIN REG 1unit/0.01ml Soln (100units/ml) SC SCH (20:33)
[2024-11-30] MEDS: GABAPENTIN 300 MG CAP PO SCH (22:00)
[2024-11-30] MEDS: Beclomethasone Dipropionate (Qvar Redihaler) 80 MCG IN SCH (22:00)
[2024-11-30] MEDS: PRAVASTATIN SODIUM 20 MG TAB PO SCH (22:00)
[2024-11-30] MEDS: MONTELUKAST SODIUM 10 MG TAB PO SCH (22:00)
[2024-11-30] MEDS: LORazepam 0.5 MG TAB PO SCH (22:00)
[2024-11-30] MEDS: SUCRALFATE 1 GM/10 ML ORAL SUSP PO SCH (22:00)
[2024-12-01] VITALS (9 sets, daily range): BP systolic 104–137; BP diastolic 68–89; PULSE 86–94; RESP 16–20; TEMP 97.8–98.8; O2SAT 93–100
[2024-12-01] MEDS: MORPHINE SULFATE 4 MG/ML SYR/VIAL IV PRN (04:14)
[2024-12-01] MEDS: ONDANSETRON HCL 4 MG/2 ML VIAL IV PRN (04:21)
[2024-12-01 07:15] LABS: Basophils # (auto) 0 10 ^3/uL (0-0.2); Basophils % (auto) 0.6 % (0.0-2.0); Eosinophils # (auto) 0.1 10 ^3/uL (0-0.8); Eosinophils % (auto) 2.2 % (0.0-7.0); Hematocrit 32.4 % (36.0-46.0); Hemoglobin 10.8 g/dL (12.2-16.2); Lymphocytes % (auto) 14.2 % (10.0-50.0); Mean Corpuscular Hemoglobin 27.2 pg (28.0-32.0); Mean Corpuscular Hgb Conc. 33.2 g/dL (32.0-36.0); Monocytes # (auto) 0.5 10 ^3/uL (0-1.3); Neutrophils # (auto) 5.1 10 ^3/uL (1.6-8.6); Nucleated Red Blood Cells % 0.1 %; Platelet Count (auto) 390 10^3/uL (140-450); Red Blood Cells 3.96 10^6/uL (4.0-5.20); Red Cell Distribution Width 15.6 % (11.8-14.3); White Blood Cell 6.7 10^3/uL (4.4-10.8)
[2024-12-01 07:24] LABS: Alanine Aminotransferase 21 U/L (7-40); Alkaline Phosphatase 92 U/L (46-116); Anion Gap 10 (5-15); BUN/Creatinine Ratio 17.2 (10.0-20.0); Blood Urea Nitrogen 17 mg/dL (9-23); Calcium 9.7 mg/dL (8.7-10.4); Carbon Dioxide 25 mmol/L (20-31); Glucose 95 mg/dL (74-106); Sodium 143 mmol/L (136-145); Total Protein 6.5 g/dL (5.7-8.2)
[2024-12-01 07:25] LABS: Albumin 4.1 g/dL (3.2-4.8)
[2024-12-01 07:29] LABS: Aspartate Aminotransferase 42 U/L (13-40); Bilirubin, Total 0.2 mg/dL (0.2-1.0); Chloride 108 mmol/L (98-107)
[2024-12-01] MEDS: LISINOPRIL 5 MG TAB PO SCH (10:00)
[2024-12-01] MEDS: ASPirin-EC 81 mg tab PO SCH (10:20)
[2024-12-01] MEDS ORDERED: ACETAMINOPHEN 325 MG TAB PO PRN (10:45)
[2024-12-01] MEDS: cefTRIAXone 1GM/50ML D5W 50 ML IV ONE (12:18)
--- NOTE | 2024-12-01 14:44 | DVHPNRES ---
Progress Note Date Seen: December 01, 2024 Resident Creating Document: ADEN AMARAL RESIDENT Has the PT tested + for MRSA If YES, has PT been informed?: No Medical Necessity Reason Pt with a Central, PICC or Fol: No Medical Necessity Reason History of Present Illness 59-year-old female past medical history anxiety asthma depression diabetes hyperlipidemia hypertension surgical history appendectomy BTL tubal ligation gastric bypass abdominal plasty breast implants right-hand surgery patient denies any history gallbladder surgery chief complaint patient states has been having epigastric abdominal pain has been going on for two months. She states she has subjective fevers yesterday but she did not check her temperature she denies any vomiting no diarrhea no tearing sensation in her abdomen. No chest pain no shortness shortness of the breath. Patient states nothing makes her pain better in his in makes it worse when speaking with the patient patient states she still have her gallbladder but she has a paced removed. When evaluating patient's labs and imaging from the ED CBC was unremarkable ultrasound shows abdominal gallbladder polyp mild wall think any and small abdominal ascites. CMP was unremarkable lipase was negative. With these findings we will admit we will add troponin EKG Protonix and sucralfate also add a CT scan abdomen pelvis. We will admit for pain management Past Medical History anxiety asthma depression diabetes hyperlipidemia hypertension s Past Surgical History: appendectomy BTL tubal ligation gastric bypass abdominal plasty breast implants right-hand surgery Family History: Non-contributory to the management of this case. Past Social History: lives at home, denies smoking, alcohol or illicit drugs abuse. 12/01 This is a 59 year patient with a history of anxiety asthma depression diabetes hyperlipidemia hypertension who presented to the ED with abdominal pain for the past two months. According to the patient, she described abdominal pain as " inflammation and bloating in her stomach." She states she has subjective fevers yesterday but she did not check her temperature. She denies any vomiting no diarrhea no tearing sensation in her abdomen, chest pain,shortness shortness of the breath. Patient states nothing makes her pain better or worse. Patient also mentioned that she has burning sensation on urination. Urinalysis is positive to UTI. Gallbladder US showed Small polyp in the gallbladder wall; Both kidneys appears to be mildly echogenic suggesting medical renal disease and small ascites seen throughout the abdomen. CT abdomen revealed Small volume ascites with extensive suspected peritoneal carcinomatosis. No measurable lymphadenopathy. Wbc was within normal limits. Subjective Review of Systems Constitutional: Denies fever no chills no feeling of malaise HEENT: Denies headache, ear pain, ear discharges, conjunctivitis, nasal discharge throat pain Cardiovascular: Denies chest pain, palpitation, orthopnea, PND, or pedal edema Respiratory: Denies shortness of breath, cough cough, sputum production, hemoptysis, GI: lower abdominal pain; Denies nausea, vomiting, diarrhea, hematemesis, hematochezia, : Denies frequency, urgency, hematuria, Endocrine: Denies unintentional weight gain or weight loss, feeling of hot flashes, [place]: Denies easy bruising, bleeding disorders, epistaxis Musculoskeletal: Denies joint pains, muscle aches Psych: No evidence of depression, elvia, suicidal ideation Objective vital signs Vital Sign Date Time Temp Pulse Resp B/P (MAP) Pulse Ox O2 Delivery O2 Flow Rate FiO2 12/01/24 10:29 93 16 113/74 12/01/24 09:13 93 Room Air 0.0 12/01/24 09:13 21 12/01/24 08:10 98.5 98.5 Total Intake and Output 11/30/24 11/30/24 12/01/24 15:00 23:00 07:00 Intake Total 0 ml Balance 0 ml medications Current Medications Medications Dose Ordered Sig/Betty Route Start Time Stop Time Status Last Admin Dose Admin Sodium Chloride 1,000 ml @ 120 mls/hr Q8H20M IV 11/30/24 16:00 Temazepam 15 mg QHSP PRN PO 11/30/24 16:00 Ondansetron HCl 4 mg Q4HP PRN IV 11/30/24 16:00 12/01/24 04:21 4 MG Docusate Sodium 100 mg BIDPRN PRN PO 11/30/24 16:00 Morphine Sulfate 2 mg Q4HPRN PRN IV 11/30/24 16:00 12/01/24 10:29 2 MG Enoxaparin Sodium 40 mg DAILY SC 11/30/24 16:00 12/01/24 10:20 40 MG Nitroglycerin 0.4 mg Q5MINP PRN SL 11/30/24 16:00 Aspirin 81 mg DAILY PO 12/01/24 10:00 12/01/24 10:20 81 MG Lorazepam 0.5 mg HS PO 11/30/24 22:00 Meclizine HCl 25 mg Q6HP PRN PO 11/30/24 16:00 Montelukast Sodium 10 mg QHSP PO 11/30/24 22:00 Pravastatin Sodium 10 mg QHSP PO 11/30/24 22:00 Patient Own Medication 80 mcg BID IN 11/30/24 22:00 Gabapentin 600 mg TID PO 11/30/24 22:00 12/01/24 06:10 600 MG Lisinopril 10 mg DAILY PO 12/01/24 10:00 Sucralfate 1 gm TID@0600,1130,2200 PO 11/30/24 22:00 12/01/24 10:20 1 GM Diagnostic Test (Pha) 1 strip ACHS 11/30/24 17:00 12/01/24 13:25 1 STRIP Insulin Human Regular ACHS SC 11/30/24 17:00 Dextrose 50 ml UD PRN IV 11/30/24 16:00 Dicyclomine HCl 20 mg QID PO 11/30/24 18:00 12/01/24 12:09 20 MG Albuterol 2.5 mg Q6HPRN PRN NEB 11/30/24 18:45 Ceftriaxone Sodium 50 ml @ 100 mls/hr DAILY@09 IV 12/02/24 09:00 Acetaminophen/ Hydrocodone Bitart 1 tab Q6HPRN PRN PO 12/01/24 10:45 Acetaminophen 650 mg Q6HP PRN PO 12/01/24 10:45 Examination General Appearance: Alert, Oriented X3, Cooperative, No acute distress HEENT: Atraumatic, PERRLA, EOMI, Mucous membrane moist/pink Respiratory: Clear to auscultation, Normal air movement Cardiovascular: Regular rate, Normal S1, Normal S2, No murmurs, no chest wall tenderness Abdominal: NO distention; Mild tenderness, bowel sounds present, no scars noted Extremities: No clubbing, No cyanosis, No edema, Normal pulses, No tenderness/swelling Skin: No rashes, No breakdown, No significant lesion Neuro: Normal gait, Normal speech, Strength at 5/5 X4 ext, Normal tone, Sensation intact, Cranial nerves 3-12 NL, Reflexes 2+ Psych/Mental Status: Mental status NL, Mood NL laboratory and microbiology Laboratory Tests 12/01/24 06:35 Test 12/01/24 06:35 Range/Units Serum Glucose 95 74-106 mg/dL Problem List/Assessment/Plan Problem List/Assessment/Plan Assessment Acute Intractable abdominal pain rule out possibility of cancer - CT scan : Small volume ascites with extensive suspected peritoneal carcinomatosis. No measurable lymphadenopathy - Gall bladder scan: Small polyp in the gallbladder wall; Both kidneys appears to be mildly echogenic suggesting medical renal disease - Outpatient follow up with her PCP Dr. Olivo for oncology referrals UTI - Pending urine culture - Ceftriaxone Prediabetes, A1c 6.1 - advised healthy diet - blood glucose is within normal range. No need to add insulin at this time Obesity grade 3, BMI 33.2 Normocytic normochromic anemia Ascites with extensive suspected peritoneal carcinomatosis - Rule out cancer - Check CA125, CA19-9, CEA Small polyp in the gallbladder wall chronic problems anxiety asthma depression dm ISS hld htn Continue home medication P And asked me to call her primary care doctor to let them know the findings on CT and the next step forward. I called her doctor's office Dr. Nicolas spoke to the police department secretary because the doctor is currently not in today led them liver note for the primary care doctor saying that the patient has findings on CT examination that points to possibility of like cancer so they need to arrange for the patient to follow up with appropriate especially like the oncologist for further evaluation Plan discussed with: Patient My Orders My Orders Orders - ADEN AMARAL Procedure Category Date Status Time Ceftriaxone 1gm/50ml PHA 12/02/24 In Process D5w (Rocephin) 09:00 Hydrocodone-Acet PHA 12/01/24 In Process 5/325mg Tab ([place] 10:45 Acetaminophen Tablet PHA 12/01/24 In Process (Tylenol Tablet) 10:45 Urine Bacterial EVARISTO 12/01/24 Logged Culture 10:48 Consistent DIET 12/01/24 Transmitted Carb(Ccho)Diabetes Lunch Date of Service: December 01, 2024 Billing Provider: JENNIFER TAY MD Common Visit Codes: [id number] INP/OBS CARE(HIGH) ADEN AMARAL December 01, 2024 14:44 JENNIFER TAY MD December 01, 2024 18:11
[2024-12-01] MEDS ORDERED: ALBUTEROL SULF 2.5 MG/0.5ML(0.5%) NEB SOLN NEB SCH (18:00)
[2024-12-01] MEDS: HYDROcodone-ACET 5/325MG TAB PO PRN (21:30)
[2024-12-01] MEDS: FAMOTIDINE 20 MG TAB PO SCH (21:31)
[2024-12-02] VITALS (8 sets, daily range): BP systolic 108–134; BP diastolic 63–84; PULSE 75–92; RESP 17–18; TEMP 96.9–98.3; O2SAT 90–100
[2024-12-02] MEDS: cefTRIAXone 1GM/50ML D5W 50 ML IV SCH (08:54)
[2024-12-02 09:16] LABS: Anion Gap 8 (5-15); Carbon Dioxide 24 mmol/L (20-31); Potassium 4.5 mmol/L (3.5-5.1); Sodium 141 mmol/L (136-145)
[2024-12-02 09:17] LABS: Calcium 9.6 mg/dL (8.7-10.4)
[2024-12-02 09:18] LABS: Chloride 109 mmol/L (98-107)
[2024-12-02 09:22] LABS: BUN/Creatinine Ratio 11.5 (10.0-20.0); Blood Urea Nitrogen 11 mg/dL (9-23)
[2024-12-02 09:25] LABS: Glucose 237 mg/dL (74-106)
[2024-12-02] MEDS: Alogliptin Benzoate 25 MG TABLET PO SCH (10:00)
[2024-12-02] MEDS: BIOTIN 5000 MCG PO SCH (10:00)
[2024-12-02] MEDS ORDERED: HYDR-4902 PO (11:34)
--- NOTE | 2024-12-02 12:29 | DVHDSRES ---
Discharge Summary Date of Admission Resident Creating Document: ADEN AMARAL RESIDENT November 30, 2024 at 16:00 Date of Discharge: December 02, 2024 Admitting Diagnosis abdominal pain Labs/Diagnostic Data: PATIENT: CASEY CONTE ACCT: [id number] UNIT: [id number] : 1965 LOC: OVERFLOW ROOM / BED: [facility]- / A AGE / SEX: 59 / F ADM STATUS: ADM IN SERVICE 1614 ORDERING PHYSICIAN: PRADIP ORTA DNP PROCEDURE(s): ABPL - CT AB PEL WO CON-NO ORAL OR IV REASON: eval for acute abd pain ORDER NUMBER(s): [id number], ACCESSION NUMBER(s): [id number] EXAM: CT CT AB PEL WO CON-NO ORAL OR IV INDICATION: eval for acute abd pain TECHNIQUE: Volumetric multidetector CT images of the abdomen and pelvis were obtained without contrast. All CT scans at this facility use dose modulation, iterative reconstruction, and/or weight based dosing when appropriate to reduce radiation dose to as low as reasonably achievable. COMPARISON: CT CT AB PEL WO CON-NO ORAL OR IV on DOS: 11/09/22 FINDINGS: [LOWER CHEST]: The partially visualized lung bases are clear without a pleural effusion. The cardiac size is normal without pericardial effusion. Intact bilateral breast implants. [LIVER]: Normal hepatic size without suspicious focal lesion. [GALLBLADDER AND BILIARY TREE]: No cholelithiasis. [SPLEEN]: Inconspicuous areas of high density along the splenic hilum [PANCREAS]: Unremarkable. [ADRENAL GLANDS]: Unremarkable [KIDNEYS]: No hydronephrosis. 3-4 mm nonobstructive left renal caliceal stone. No suspicious focal lesion. [BLADDER]: Unremarkable for the degree distention. [REPRODUCTIVE ORGANS]: Uterus appears within normal limits. No abnormal ovarian enlargement. [BOWEL/MESENTERY]: Postsurgical changes to the stomach. 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 No CT evidence of bowel obstruction. Extensive suspected high density peritoneal carcinomatosis most conspicuous in the upper abdomen. [ASCITES]: Small volume ascites with suspected peritoneal carcinomatosis [LYMPHADENOPATHY]: No pathologically enlarged lymph nodes by CT size criteria [VASCULATURE]: No aneurysmal dilatation. [ABDOMINAL WALL]: Unremarkable. [MUSCULOSKELETAL]: No acute fracture or aggressive focal osseous lesion. Multifocal degenerative change of the visualized spine. IMPRESSION: 1. Small volume ascites with extensive suspected peritoneal carcinomatosis. No measurable lymphadenopathy. ATED BY: AAKASH DE ANDA MD DICTATED DATE/TIME: 11/30/24 1654 PATIENT: CASEY CONTE ACCT: [id number] UNIT: [id number] : 1965 LOC: ER ROOM / BED: / AGE / SEX: 59 / F ADM STATUS: REG ER SERVICE 1415 ORDERING PHYSICIAN: CESILIA PANDA MD PROCEDURE(s): GBUS - GALLBLADDER REASON: pain ORDER NUMBER(s): [id number], ACCESSION NUMBER(s): [id number] Please correlate with Alk Phos, bilirubin, blood culture, fever, WBC for primary cholecystitis, versus secondary wall thickening with lipase for pancreatitis, AST/ALT for hepatitis/cirrhosis, BUN/Cr for renal failure, and BNP/albumin for CHF/low protein state. Findings: The liver is normal size with normal echotexture measuring 15.1 cm. No dilated duct or mass seen. The gallbladder has a small polyp measuring 0.42 cm. The gallbladder wall thickness is 0.16 cm. The common bile duct measures 0.44 cm. The right kidney length is 9.2 cm the left kidney measures 8.3 cm. There is no mass or hydronephrosis. Both kidneys appear mildly echogenic suggesting underlying medical renal disease. There is no evidence of any mass or calculi or obstructive uropathy. The pancreas is obscured by overlying bowel gas. Small amount of ascites seen throughout the abdomen. IMPRESSION: 1. Small polyp in the gallbladder wall 2. Both kidneys appears to be mildly echogenic suggesting medical renal disease.. 3. Small ascites seen throughout the abdomen. ATED BY: COLLEEN CLARK MD DICTATED DATE/TIME: 11/30/24 1456 Laboratory Results Test 12/02/24 11:05 12/02/24 08:49 12/01/24 15:40 12/01/24 06:35 POC Glucose 49 mg/dl (70-106) Sodium Level 141 mmol/L (136-145) Potassium Level 4.5 mmol/L (3.5-5.1) Chloride Level 109 mmol/L (98-107) Carbon Dioxide Level 24 mmol/L (20-31) Anion Gap 8 (5-15) Blood Urea Nitrogen 11 mg/dL (9-23) Creatinine 0.96 mg/dL (0.550-1.02) Glomerular Filtration Rate Calc 67 mL/min (>90) BUN/Creatinine Ratio 11.5 (10.0-20.0) Serum Glucose 237 mg/dL (74-106) Calcium Level 9.6 mg/dL (8.7-10.4) Carcinoembryonic Antigen 2.01 ng/mL (<=5.0) CA 19-9 Antigen 40 U/mL (0-35) CA 125 Antigen 2303.0 U/mL (0.0-38.1) White Blood Count 6.7 10^3/uL (4.4-10.8) Red Blood Count 3.96 10^6/uL (4.0-5.20) Hemoglobin 10.8 g/dL (12.2-16.2) Hematocrit 32.4 % (36.0-46.0) Mean Corpuscular Volume 82.0 fL (80.0-100.0) Mean Corpuscular Hemoglobin 27.2 pg (28.0-32.0) Mean Corpuscular Hemoglobin Concent 33.2 g/dL (32.0-36.0) Red Cell Distribution Width 15.6 % (11.8-14.3) Platelet Count 390 10^3/uL (140-450) Mean Platelet Volume 7.8 fL (6.9-10.8) Neutrophils (%) (Auto) 76.0 % (37.0-80.0) Lymphocytes (%) (Auto) 14.2 % (10.0-50.0) Monocytes (%) (Auto) 7.0 % (0.0-12.0) Eosinophils (%) (Auto) 2.2 % (0.0-7.0) Basophils (%) (Auto) 0.6 % (0.0-2.0) Neutrophils # (Auto) 5.1 10 ^3/uL (1.6-8.6) Lymphocytes # (Auto) 1.0 10 ^3/uL (0.4-5.4) Monocytes # (Auto) 0.5 10 ^3/uL (0-1.3) Eosinophils # (Auto) 0.1 10 ^3/uL (0-0.8) Basophils # (Auto) 0 10 ^3/uL (0-0.2) Nucleated Red Blood Cells 0.1 % Hemoglobin A1c 6.1 % A1C (<5.7) Total Bilirubin 0.2 mg/dL (0.2-1.0) Aspartate Amino Transferase (AST) 42 U/L (13-40) Alanine Aminotransferase (ALT) 21 U/L (7-40) Alkaline Phosphatase 92 U/L (46-116) Total Protein 6.5 g/dL (5.7-8.2) Albumin 4.1 g/dL (3.2-4.8) Test 11/30/24 16:18 11/30/24 14:46 11/30/24 13:35 Troponin I High Sensitivity < 3 ng/L (</=34) Lipase 49 U/L (12-53) Urine Color Dark-yellow (Yellow) Urine Clarity Clear (Clear) Urine pH 6.0 (5.0-9.0) Urine Specific [place] 1.029 (1.001-1.035) Urine Protein 1+ (Negative) Urine Ketones Trace (Negative) Urine Blood Negative /uL (Negative) Urine Nitrite Negative (Negative) Urine Bilirubin Negative (Negative) Urine Urobilinogen Normal mg/dL (Negative) Urine Leukocyte Esterase 1+ /uL (Negative) Urine RBC 2 /hpf (0 - 4) Urine Microscopic WBC 2 /HPF (0-5) Urine Squamous Epithelial Cells Few /hpf (<5) Urine Bacteria Few /hpf (None Seen) Urine Hyaline Casts Few /lpf (0 - 2) Urine Mucus Few (None Seen) Urine Glucose Normal mg/dL (Normal) Other Laboratory Tests 12/02/24 08:49 12/01/24 06:35 Brief Hx & Hospital Course: History of presenting illness 59-year-old female past medical history anxiety asthma depression diabetes hyperlipidemia hypertension surgical history appendectomy BTL tubal ligation gastric bypass abdominal plasty breast implants right-hand surgery patient denies any history gallbladder surgery chief complaint patient states has been having epigastric abdominal pain has been going on for two months. She states she has subjective fevers yesterday but she did not check her temperature she denies any vomiting no diarrhea no tearing sensation in her abdomen. No chest pain no shortness shortness of the breath. Patient states nothing makes her pain better in his in makes it worse when speaking with the patient patient states she still have her gallbladder but she has a paced removed. When evaluating patient's labs and imaging from the ED CBC was unremarkable ultrasound shows abdominal gallbladder polyp mild wall think any and small abdominal ascites. CMP was unremarkable lipase was negative. With these findings we will admit we will add troponin EKG Protonix and sucralfate also add a CT scan abdomen pelvis. We will admit for pain management Past Medical History anxiety asthma depression diabetes hyperlipidemia hypertension s Past Surgical History: appendectomy BTL tubal ligation gastric bypass abdominal plasty breast implants right-hand surgery Family History: Non-contributory to the management of this case. Past Social History: lives at home, denies smoking, alcohol or illicit drugs abuse. Brief Hospital course This is a 59 year patient with a history of anxiety asthma depression diabetes hyperlipidemia hypertension who presented to the ED with abdominal pain for the past two months. According to the patient, she described abdominal pain as " inflammation and bloating in her stomach." She stated she hads subjective fevers at home. She denies any vomiting no diarrhea no tearing sensation in her abdomen, chest pain,shortness shortness of the breath. Patient states nothing makes her pain better or worse. Patient also mentioned that she has burning sensation on urination. Urinalysis is positive to UTI. Gallbladder US showed Small polyp in the gallbladder wall; Both kidneys appears to be mildly echogenic suggesting medical renal disease and small ascites seen throughout the abdomen. CT abdomen revealed Small volume ascites with extensive suspected peritoneal carcinomatosis. No measurable lymphadenopathy. Wbc was within normal limits. CA 125 level was 2303, CA 19-9 was 40 and CEA: 2. On this admission was managed for UTI. I made a call to her primary care physician's office given these lab report and CT finding. Advised that the patient be referred to see an oncologist for further evaluation for this findings. Patient feeling a little better today. Will discharge home with ciprofloxacin to complete her course of antibiotics for the UTI. Patient was given the details of the lab reports and the advised follow up with the primary care doctor for further evaluation and also prefers referral to see the appropriate specialist. Review of system Constitutional: Denies fever no chills no feeling of malaise HEENT: Denies headache, ear pain, ear discharges, conjunctivitis, nasal discharge throat pain Cardiovascular: Denies chest pain, palpitation, orthopnea, PND, or pedal edema Respiratory: Denies shortness of breath, cough cough, sputum production, hemoptysis, GI: abdominal pain, nausea, vomiting, diarrhea, hematemesis, hematochezia, : Denies frequency, urgency, hematuria, Endocrine: Denies unintentional weight gain or weight loss, feeling of hot flashes, [place]: Denies easy bruising, bleeding disorders, epistaxis Musculoskeletal: Denies joint pains, muscle aches Psych: No evidence of depression, elvia, suicidal ideation Examination General Appearance: Alert, Oriented X3, Cooperative, No acute distress HEENT: Atraumatic, PERRLA, EOMI, Mucous membrane moist/pink Respiratory: Clear to auscultation, Normal air movement Cardiovascular: Regular rate, Normal S1, Normal S2, No murmurs, no chest wall tenderness Abdominal: NO distention, [place] umbilical tenderness, bowel sounds present, no scars noted Extremities: No clubbing, No cyanosis, No edema, Normal pulses, No tenderness/swelling Skin: No rashes, No breakdown, No significant lesion Neuro: Normal gait, Normal speech, Strength at 5/5 X4 ext, Normal tone, Sensation intact, Cranial nerves 3-12 NL, Reflexes 2+ Psych/Mental Status: Mental status NL, Mood NL Diagnoses Acute Intractable abdominal pain; CA 125 2303; Ca 19-9 40; rule out possibility of cancer Ascites with extensive suspected peritoneal carcinomatosis UTI Prediabetes, A1c 6.1 Obesity grade 3, BMI 33.2 Normocytic normochromic anemia Small polyp in the gallbladder wall anxiety asthma depression Diabetes type 2 Hyperlipidemia Hypertension Discharge plan Continue antibiotics for the next few days Follow up at the discharge Clinic in 7 days Follow up with primary care physician for referral to see an oncologist Continue home medications Report to the ED if you do not feel any better Discharge plan discussed with Dr. Herrera Condition at Discharge: Critical Final Diagnosis/Problems List Acute Intractable abdominal pain; CA 125 2303; Ca 19-9 40; rule out possibility of cancer Ascites with extensive suspected peritoneal carcinomatosis UTI Prediabetes, A1c 6.1 Obesity grade 3, BMI 33.2 Normocytic normochromic anemia Small polyp in the gallbladder wall anxiety asthma depression Diabetes type 2 Hyperlipidemia Hypertension Discharge Disposition: Home Discharge Statement: "Patient was advised to return to the ER or call 911 if any headaches, dizziness, shortness of breath, chest pain, abdominal pain, bleeding, fevers, or worsening of medical condition. Patient was counseled about treatment plan, medications, possible side effects, patientverbalized understanding. All questions were answered to the best of my ability. This discharge took greater then 30 minutes in planning, reviewing documentation, counseling the patient, and discussing with other team members." ASSESSMENT ASSESSMENT Assessment ADEN AMARAL RESIDENT December 02, 2024 12:29
[2024-12-02] MEDS ORDERED: CIPR500T4 PO (17:24)
== END 2024-12-02 17:15 | disposition home or self-care (01) | DRG 375 ==
LOC: ER 13:13 → OVERFLOW 16:00 → WEST WING 12-01 05:04
PROVIDERS: ADMIT Hospitalist; ATTEND Hospitalist
DX: C78.6 Secondary malignant neoplasm of retroperitoneum and peritoneum (principal); N39.0 Urinary tract infection, site not specified; R18.8 Other ascites; E78.5 Hyperlipidemia, unspecified; I10 Essential (primary) hypertension; K82.4 Cholesterolosis of gallbladder; J45.909 Unspecified asthma, uncomplicated; F32.A Depression, unspecified; D64.9 Anemia, unspecified; F41.9 Anxiety disorder, unspecified; E11.9 Type 2 diabetes mellitus without complications; E66.9 Obesity, unspecified; Z68.33 Body mass index [BMI] 33.0-33.9, adult; Z88.0 Allergy status to penicillin; Z88.3 Allergy status to other anti-infective agents; Z79.899 Other long term (current) drug therapy; Z90.49 Acquired absence of other specified parts of digestive tract; Z98.84 Bariatric surgery status; Z98.82 Breast implant status; Z79.82 Long term (current) use of aspirin; Z79.84 Long term (current) use of oral hypoglycemic drugs
CPT/HCPCS: 36415; 74176; 76705; 80048; 80053; 81001; 82378; 82962; 83036; 83690; 84484; 85025; 86301; 86304; 87086; G0378; J2405

== ENCOUNTER → 2025-02-03 | Day surgery (SDC) | payer BC, MEDICAID ==
[~2025-02-03] VITALS: Ht 162.6 cm; Wt 86.2 kg
[~2025-02-03] MED LIST changes: +ACET500T58 PO; +AZIT4SOL RIGHTEYE; -CEPH500C PO; +HYDR-4902 PO; -MELO15TA29 PO; -METH4PAK PO; -NAPR-746 PO; +PROPOFOL 10 MG/ML 20 ML IV ONE; -TRAM50TA2 PO; +fentaNYL CITRATE 100 MCG/2 ML VL ONE
--- NOTE | 2025-02-03 09:51 | DVHHP2 ---
GI H&P Pre-Op Assessment Date: 02/03/25 Chief complaint: Epigastric pain, ascites, questionable peritoneal carcinomatosis HPI: per clinic note Past medical history: per clinic note Past surgical history: per clinic note Family history: per clinic note Physical exam: General: NAD, AAOX3 HEENT: PERRL, no scleral icterus, normal hearing, gums without lesions or bleeding, oropharynx clear without erythema or exudate. Neck: Supple without enlargement of the thyroid, or lymphadenopathy. Chest: Normal size and shape, no tenderness, lung hill clear to auscultation and percussion, nonlabored breathing. Heart: RRR, no murmur Abdomen: non-distended, +tenderness to palpation, +BS, no hepatosplenomegaly Extremities: no edema Neurological: CN II-XII intact, sensation intact in all extremities, 5+ strength in all extremities Skin: No rashes, No jaundice Assessment: - Epigastric pain, ascites, questionable peritoneal carcinomatosis Plan: - EGD - Colonoscopy - Risks (bleeding, infection, perforation, reaction to sedation medications and cardiopulmonary arrest) and benefit of the procedure were explained to patient. Patient agrees to undergo the procedure. CASS EVANS MD Feb 03, 2025 09:51
[2025-02-03 10:23] VITALS: PULSE 86; RESP 18; TEMP 97.9; O2SAT 96
--- NOTE | 2025-02-03 10:24 | DVHOP2 ---
Operative Report DATE OF OPERATION: 02/03/25 PROCEDURE: Upper Endoscopy. PREOPERATIVE INDICATION: The patient is a 59 -year-old female undergoing endoscopy for epigastric pain. POSTOPERATIVE DIAGNOSES: 1. Postop change from the previous gastric bypass surgery 2. Gastric biopsies were obtained to evaluate for H pylori. PROCEDURE PERFORMED BY: Bobby Oh SCOPE: Olympus videoendoscope. ASA CLASS: 3 PREOPERATIVE MEDICATIONS: MAC with Dr Anand PROCEDURE IN DETAIL: After obtaining an informed consent, the patient was placed on left lateral decubitus position. The patient was then sedated with the above medications. A bite block was placed between her teeth. The endoscope was then passed through the oropharynx, into the esophagus, and through the residual stomach and into the jejunum. The observed jejunum was normal in appearance. The residual stomach was normal in appearance. Gastric biopsies were obtained using cold forceps. The GE junction was normal in appearance at 34 cm. The esophagus was normal in appearance.. The endoscope was then withdrawn. The patient tolerated the procedure well without difficulty. COMPLICATIONS : None SPECIMENS: Gastric biopsies DISPOSITION: D/C to home PLAN: 1. Await for biopsy result BOBBY OH MD Feb 03, 2025 10:24
--- NOTE | 2025-02-03 10:25 | DVHOP2 ---
Operative Report DATE OF OPERATION: 02/03/25 PROCEDURE: Colonoscopy. PREOPERATIVE INDICATION: The patient is a 59 -year-old female undergoing colonoscopy for ascites and questionable peritoneal carcinomatosis. POSTOPERATIVE DIAGNOSES: 1. 2 mm sigmoid polyp was removed with cold biopsy forceps. 2. No mass was observed. PROCEDURE PERFORMED BY: Bobby Oh M.D. SCOPE: Olympus videocolonoscope. ASA CLASS: 3 PREOPERATIVE MEDICATIONS: MAC with Dr Anand PROCEDURE IN DETAIL: After obtaining an informed consent, the patient was placed on left lateral decubitus position. She was then sedated with the above medications. A rectal examination was performed that was normal. The colonoscope was then passed through the anus into the rectosigmoid and through the descending, transverse, and ascending colon up to the cecum with visualization of the appendiceal orifice, base of the cecum and the ileocecal valve. A 2 mm sigmoid polyp was removed with biopsy forceps. No colon mass was observed. The colonoscope was then withdrawn. The patient tolerated the procedure well without difficulty. WITHDRAWAL TIME: 8 minutes QUALITY OF THE PREP: [place] Bowel Prep score: 6 COMPLICATIONS : None SPECIMENS: Colon polyp DISPOSITION: D/C to home PLAN: 1. Repeat colonoscopy base on biopsy result BOBBY OH MD Feb 03, 2025 10:25
--- NOTE | 2025-02-03 10:26 | DVHDS2 ---
Physician Discharge Progress N Final Diagnosis: Postop change in the upper GI. Colon polyp Operations or Procedures: Operations or Procedures EGD with cold biopsy Colonoscopy with cold biopsy polypectomy Condition on Discharge: Good Disposition: Home Discharge Instructions: Diet: Regular Activity: No Restrictions, As Tolerated Medications: Resume previous home medications Follow Up Care: Discharge Statement: "Patient was advised to return to the ER or call 911 if any headaches, dizziness, shortness of breath, chest pain, abdominal pain, bleeding, fevers, or worsening of medical condition. Patient was counseled about treatment plan, medications, possible side effects, patientverbalized understanding. All questions were answered to the best of my ability. This discharge took greater then 30 minutes in planning, reviewing documentation, counseling the patient, and discussing with other team members." CASS EVANS MD Feb 03, 2025 10:26
[2025-02-03 11:05] VITALS: BP 109/79; PULSE 82; RESP 18; O2SAT 93
== END | disposition home or self-care (01) ==
LOC: GI 07:45
PROVIDERS: ATTEND Internal Medicine Gastroenterology
DX: R93.3 Abnormal findings on diagnostic imaging of other parts of digestive tract (principal); K63.5 Polyp of colon; K29.50 Unspecified chronic gastritis without bleeding; R10.13 Epigastric pain; R18.8 Other ascites; E11.9 Type 2 diabetes mellitus without complications; J45.909 Unspecified asthma, uncomplicated; M19.90 Unspecified osteoarthritis, unspecified site; F41.9 Anxiety disorder, unspecified; Z79.899 Other long term (current) drug therapy; Z86.2 Personal history of diseases of the blood and blood-forming organs and certain disorders involving the immune mechanism; Z98.84 Bariatric surgery status; Z98.890 Other specified postprocedural states; Z88.1 Allergy status to other antibiotic agents; Z88.8 Allergy status to other drugs, medicaments and biological substances
CPT/HCPCS: 43239; 45380; 82962; 88305; 88342; J2704; J3010; J7030

== ENCOUNTER 2025-02-06 23:43 | Emergency (ER) | payer BC, MEDICAID ==
[~2025-02-06] VITALS: Ht 162.6 cm; Wt 86.4 kg
[~2025-02-06 23:43] MED LIST changes: -ACET500T58 PO; -AZIT4SOL RIGHTEYE; -PROPOFOL 10 MG/ML 20 ML IV ONE; -fentaNYL CITRATE 100 MCG/2 ML VL ONE
[2025-02-06 23:45] VITALS: BP 128/78; PULSE 96; RESP 16; TEMP 98.3; O2SAT 98
[2025-02-07] MEDS ORDERED: TETRACAINE HCL 0.5% OPTH(EYE) SOLN 4ML EACHEYE ONE ×2 (00:30→00:45)
[2025-02-07] MEDS ORDERED: FLUORESCEIN SOD OPTH TEST STRIP ONE (00:48)
[2025-02-07] MEDS ORDERED: AZIT4SOL RIGHTEYE (00:56)
[2025-02-07] MEDS ORDERED: ACET500T58 PO (00:56)
--- NOTE | 2025-02-07 00:57 | ED.PDOC ---
Eye-HPI HPI Comments Patient is a pleasant but obese 59-year-old female who arrives the ED today for evaluation of right eye concerns status post doing some gardening earlier today. Patient states she was pruning some plants when a piece flew up and struck her in the right eye. Patient states it subsequent to that event, she feels like she has something in her eye. Patient arrives with some scleral injection and lid swelling due to continual rubbing of the eye. Patient denies any vision change. Vital signs were stable. Chief Complaint: Eye Problem Time Seen by MD: 00:28 Primary Care Provider: WARD Reviewed Notes: Nurses Notes Allergies: Coded Allergies: Amoxicillin (Verified Allergy, Unknown, 10/05/19) Clavulanic Acid (Verified Allergy, Unknown, 10/05/19) Sulfamethoxazole w/Trimethoprim (Verified Allergy, Unknown, 02/19/19) Home Meds Active Scripts Hydrocodone-Acetaminophen (Hydrocodone Bitartrate/AC 5-325 mg) 1 Tab Tab, 1 TAB PO Q6HPRN PRN for 7 Days, #28 TAB Prov:JENNIFER TAY MD 12/02/24 Respiratory Therapy Supplies (Full Kit Nebulizer Set) Set Mis, KIT XX Q6HP PRN, #1 Prov:ETHAN LEAVITT TRIMMING CASER 24 Albuterol Sulfate (Albuterol Sulfate) 0.083 % Neb, 1 VIAL NEB Q4HPRN for 60 Days, #60 VIAL Prov:ETHAN LEAVITT TRIMMING CASER 24 Ipratropium Rye (Ipratropium Rye) 0.02 % Saranya, 0.5 % HHN Q6HP PRN for 30 Days, #60 ML Prov:ETHAN LEAVITT TRIMMING CASER 24 Benzonatate (Benzonatate) 100 Mg Cap, 1 CAP PO TID, #20 CAP Prov:DIO GALICIA PAC 12/13/22 Pantoprazole Sodium Sesquihydr (Protonix) 40 Mg Tab, 40 MG PO DAILY for 7 Days, #7 TAB Prov:KAYKAY URBINA MD 11/09/22 Reported Medications Aspirin (Aspir-Low) 81 Mg Tab, 81 MG PO DAILY for 30 Days, MG 12/07/23 Meclizine Hcl (Meclizine Hcl) 25 Mg Tab, 25 MG PO PRN for 30 Days, MG 11/05/19 Alogliptin Benzoate (Alogliptin) 25 Mg Tab, 25 MG PO DAILY, TAB 11/05/19 Lorazepam (ATIVAN TABLET) 0.5 Mg Tb, 1 TAB PO HS, #90 TAB 11/05/19 Tizanidine Hydrochloride (Zanaflex) 4 Mg Cap, 4 MG PO BIDPRN, CAP 11/05/19 Beclomethasone Dipropionate (Qvar Redihaler) 80 Mcg/Act Aer, 80 MCG IN BID, AER 2 Puffs BID 11/05/19 Albuterol Sulfate (VENTOLIN MDI) 90 Mcg Ih, 90 MCG IN Q6HP, INH 2 Puffs Q6 11/05/19 Biotin (SUPER BIOTIN) 5,000 Mcg Cap, 56368 MCG PO DAILY, CAP 11/05/19 Dicyclomine HCl (Dicyclomine Hydrochloride) 20 Mg Tab, 20 MG PO Q6HPRN, TAB 11/05/19 Famotidine (PEPCID TABLET) 20 Mg Tb, 1 TAB PO BID, #60 TAB 5 Refills 11/05/19 [place]-3 Fatty Acids (Fish Oil) Cap, 1000 OR DAILY, CAP 11/05/19 Omeprazole (Gnp Omeprazole) 20 Mg Tab, 40 MG PO DAILY, TAB 11/05/19 Montelukast Sodium (MONTELUKAST SODIUM) 10 Mg Tab, 1 TAB PO QHSP, #30 TAB 5 Refills 02/20/19 Lisinopril (Lisinopril) 10 Mg Tab, 10 MG PO DAILY, TAB 02/20/19 Pravastatin Sodium (PRAVACHOL TABLET) 20 Mg Tb, 10 MG PO QHSP 02/20/19 Gabapentin (Gabapentin) 600 Mg Tab, 600 MG PO TID 02/20/19 Metformin Hydrochloride (Metformin Hcl) 1,000 Mg Tab, 1000 MG PO BID 02/20/19 Glipizide (Glipizide) 10 Mg Tab, 10 MG PO BID 02/20/19 Information Source: Patient Mode of Arrival: Ambulatory Timing: Hours Duration: Since onset Prehospital treatment: None Quality: Pain, Red, FB sensation Eye Location: Right Conjunctiva: Injection Onset: FB Exposure Past Medical History PAST MEDICAL HISTORY: Anxiety, Asthma, Depression, DM, High Lipids, HTN Surgical History: Appendectomy, BTL, Cholecystectomy, Tubal Ligation CRITICAL CARE NURSE PRACTITIONER History: No Pertinent CRITICAL CARE NURSE PRACTITIONER History Family History Family History: Family hx of heart gerard, Family hx of liver gerard Social History Smoker: Non-Smoker Alcohol: Rarely Drugs: Denies Drug Use Lives In: Home Constitutional: denies: chills, diaphoresis, fatigue, fever, malaise, sweats, weakness, others EENTM: reports: eye pain, eye redness; denies: blurred vision, double vision, ear bleeding, ear discharge, ear drainage, ear pain, ear ringing, hearing loss, mouth pain, mouth swelling, nasal discharge, nose bleeding, nose congestion, nose pain, photophobia, tearing, throat pain, throat swelling, voice changes, o thers Respiratory: denies: cough, hemoptysis, orthopnea, SOB at rest, shortness of breath, SOB with excertion, stridor, wheezing, others Cardiovascular: denies: chest pain, dizzy spells, diaphoresis, Dyspnea on e xertion, edema, irregular heart beat, left arm pain, lightheadedness, palpitations, PND, syncope, others Gastrointestinal: denies: abdomen distended, abdominal pain, blood streaked bowels, constipated, diarrhea, dysphagia, difficulty swallowing, hematemesis, melena, nausea, poor appetite, poor fluid intake, rectal bleeding, rectal pain, vomiting, others Genitourinary: denies: abnormal vagina bleeding, burning, dyspareunia, dysuria, flank pain, frequency, hematuria, incontinence, pain, , vagina discharge, urgency, others Neurological: denies: dizziness, fainting, headache, left sided numbness, left sided weakness, numbness, paresthesia, pre-existing deficit, right sided numbness, right sided weakness, seizure, speech problems, tingling, tremors, weakness, others Musculoskeletal: denies: back pain, gout, joint pain, joint swelling, muscle pain, muscle stiffness, neck pain, others Integumetry: denies: bruises, change in color, change in hair/nails, dryness, laceration, lesions, lumps, rash, wounds, others Allergic/Immunocompromised: denies: Difficulty Healing, Frequent Infections, Hives, Itching, others Hematologic/Lymphatic: denies: anemia, blood clots, easy bleeding, easy bruising, swollen glands, others Endocrine: denies: excessive hunger, excessive sweating, excessive thirst, excessive urination, flushing, intolerance to cold, intolerance to heat, unexplained weight gain, unexplained weight loss, others Psychiatric: denies: anxiety, bipolar disorder, depression, hopeless, panic disorder, schizophrenia, sleepless, suicidal, others Physical Exam General Appearance: Moderate Distress (Moderate distress due to right eye pain concerns.), Normal HEENT: Pharynx Normal, TMs Normal, Other (Tetracaine was utilized for local anesthesia and right eye evaluation occurred with a fluorescein stain strep. Two points of corneal abrasion noted at the inferior aspect and superior to the pupil. No penetrating foreign bodies noted.) Neck: Full Range of Motion, Non-Tender, Normal, Normal Inspection Respiratory: Chest Non-Tender, Lungs Clear, No Accessory Muscle Use, No Respiratory Distress, Normal Breath Sounds Cardiovascular: No Edema, No JVD, No Murmur, No Gallop, Normal Peripheral Pulses, Regular Rate/Rhythm Breast Exam: Deferred Gastrointestinal: No Organomegaly, Non Tender, No Pulsatile Mass, Normal Bowel Sounds, Soft Genitalia: Deferred Pelvic: Deferred Rectal: Deferred Extremities: No calf tenderness, Normal capillary refill, Normal inspection, Normal range of motion, Non-tender, No pedal edema Neurologic: Alert, No Motor Deficits, Normal Affect, Normal Mood, No Sensory Deficits Cerebellar Function: Normal Reflexes: Normal Skin: Dry, Normal Color, Warm Lymphatic: No Adenopathy Was a procedure done? Was a procedure done?: No EENT DIFF Eye: Conjunctivitis, Corneal Abrasion, Corneal Lacerations, Corneal Ulceration, Foreign Body-Conjunctiva, Foreign Body-Corneal, Foreign Body-Lid X-Ray, Labs, Meds, VS Vital Signs Date Time Temp Pulse Resp B/P (MAP) Pulse Ox O2 Delivery O2 Flow Rate FiO2 02/06/25 23:45 98.3 96 16 128/78 98 98.3 X-Ray, Labs, Meds, VS Comment Fluorescein stain evaluation confirmed a corneal abrasion. Patient will be prescribed antibiotic eyedrops to be utilized. Advised patient to follow up tomorrow with Ophthalmology for definitive evaluation of right eye concerns. Time of 1ST Reevaluation: 00:55 Reevaluation 1ST: Improved Consultation: PCP, Other (Ophthalmology) Patient Education/Counseling: Diagnosis, Treatment Family Education/Counseling: Diagnosis, Treatment SEPSIS Sepsis Screen Date sepsis recognized/suspect: Feb 06, 2025 Time Sepsis recognized/suspect: 2344 Recent Procedure: No On Antibiotic Therapy: No Respiratory Rate >20: No Heart Rate >90: Yes Temp<36 C (96.8 F) or >38.3 C: No SBP <90 or MAP <65 mmHG: No New Acute Mental Status Change: No Is the patient on CPAP, BIPAP,: No Vital Signs Date Time Temp Pulse Resp B/P (MAP) Pulse Ox O2 Delivery O2 Flow Rate FiO2 02/06/25 23:45 98.3 96 16 128/78 98 98.3 Departure 1 Departure Time of Disposition: 00:55 Impression: Primary Impression: Corneal abrasion Disposition: HOME / SELF CARE / HOMELESS Condition: Stable Additional Instructions: Advised patient utilize antibiotics as directed until completion. Patient should follow up with Ophthalmology tomorrow for definitive evaluation of right eye corneal abrasion concerns. e-Prescriptions Acetaminophen (Acetaminophen) 500 Mg Tab 500 MG PO Q4HP PRN, #20 TAB Prov: DIO GALICIA PAC 02/07/25 Azithromycin (Ophth) (Azasite) 1 % Saranya 2 DROP RIGHTEYE BID for 5 Days, #2.5 ML 0 Refills Prov: DIO GALICIA PAC 02/07/25 Discharged With: Self, Friend Critical Care Note Critical Care Time?: No Stability Stability form required: No Heart Score Heart Score: Heart Score Response (Comments) Value History N/A 0 EKG N/A 0 Age N/A 0 Risk Factors N/A 0 Troponin N/A 0 Total 0 DIO GALICIA PAC Feb 07, 2025 00:57
== END 2025-02-07 01:45 | disposition home or self-care (01) ==
LOC: ER 23:43
DX: S05.01XA Injury of conjunctiva and corneal abrasion without foreign body, right eye, initial encounter (principal); J45.909 Unspecified asthma, uncomplicated; I10 Essential (primary) hypertension; E11.9 Type 2 diabetes mellitus without complications; Z88.2 Allergy status to sulfonamides; Z88.0 Allergy status to penicillin; Z79.899 Other long term (current) drug therapy; Z90.49 Acquired absence of other specified parts of digestive tract; X58.XXXA Exposure to other specified factors, initial encounter; Y93.H2 Activity, gardening and landscaping; Y92.89 Other specified places as the place of occurrence of the external cause; Y99.8 Other external cause status